=== PATIENT | female | born 1940 | race Caucasian/White ===

== ENCOUNTER → 2017-06-22 | Outpatient (CLI) | payer MEDICARE, OTHER ==
--- NOTE | 2017-06-22 10:31 | XR ---
EXAMINATION TYPE: XR lumbar spine 2 or 3V DATE OF EXAM: 06/22/2017 COMPARISON: NONE HISTORY: Sciatica low back pain TECHNIQUE: Three-view lumbar spine FINDINGS: There are 6 lumbar-type vertebral bodies. There may be lumbarization of S1. The pedicles ar e intact. There is scoliosis present. Loss of disc height is present with vacuum disc phenomenon. Not e is made of some vascular calcification within the aorta. Vertebral body heights appear preserved. IMPRESSION: 1. Scoliosis and degenerative disc changes lumbar spine
== END | disposition home or self-care (01) ==
LOC: RADXRMAIN 09:14
PROVIDERS: ATTEND Physician Assistant
DX: M47.816 Spondylosis without myelopathy or radiculopathy, lumbar region (principal); M41.9 Scoliosis, unspecified; M54.32 Sciatica, left side
CPT/HCPCS: 72100

== ENCOUNTER → 2018-01-04 | Outpatient (CLI) | payer MEDICARE, OTHER ==
--- NOTE | 2018-01-04 08:05 | US ---
EXAMINATION TYPE: US duplex aorta DATE OF EXAM: 01/04/2018 COMPARISON: NONE CLINICAL HISTORY: I70.0 Atherosclerosis of aorta. Smoker for 60 years. EXAM MEASUREMENTS: Abdominal Aorta: Proximal: 2.0 x 2.0 cm Mid: 1.9 x 1.7 cm Distal: 2.1 x 1.6 cm Aorta appears within normal caliber, extensive calcifications IMPRESSION: Extensive atheromatous changes of the abdominal aorta without sonographic evidence of ane urysm.
== END | disposition home or self-care (01) ==
LOC: RADUSWWP 06:57
PROVIDERS: ATTEND Family Medicine
DX: I70.0 Atherosclerosis of aorta (principal)
CPT/HCPCS: 93979

== ENCOUNTER → 2018-01-08 | Outpatient (CLI) | payer MEDICARE, OTHER ==
--- NOTE | 2018-01-09 08:24 | BD ---
EXAMINATION TYPE: Axial Bone Density DATE OF EXAM: 01/08/2018 COMPARISON: NONE CLINICAL HISTORY: Postmenopausal without hormone replacement therapy Height: 62 Weight: 118.7 FRAX RISK QUESTIONS: Alcohol (3 or more units per day): no Family History (Parent hip fracture): no Glucocorticoids (More than 3mos): no (Ex: prednisone, prednisolone, methylprednisolone, dexamethasone, and hydrocortisone). History of Fracture in Adulthood: yes Secondary Osteoporosis: 1. Type 1 Diabetes: no 2. Hyperthyroidism: no 3. Menopause before 45: no 4. Malnutrition: no 5. Chronic liver disease: no Rheumatoid Arthritis: no Current Tobacco Use: yes RISK FACTORS HISTORY OF: Family History of Osteoporosis: yes Active: no Diet low in dairy products/other sources of calcium: no Postmenopausal woman: age 49 Lost more than 2 inches in height since high school: yes Frequent falls: no MEDICATIONS: blood pressure Additional History: EXAM MEASUREMENTS: Bone mineral densitometry was performed using the [employer] System. Bone mineral density as measured about the Lumbar spine is: ----- L1-L4(G/cm2): 1.140 T Score Values are as follows: ----- L2: -1.0 ----- L3: 1.0 ----- L4: 0.2 ----- L1-L4: -0.3 Bone mineral density has: decreased -1.2 % since study of: 12.11.2013 Bone mineral density about the R hip (g/cm2): 0.781 Bone mineral density about the L hip (g/cm2): 0.863 T Score values are as follows: -----R Neck: -1.9 -----L Neck: -1.3 -----R Total: -1.9 -----L Total: -2.0 Bone mineral density has: decreased -0.5 % since study of: 12.11.2013 IMPRESSION: Osteopenia NOTE: T-SCORE=SD OF THE YOUNG ADULT MEAN.
== END | disposition home or self-care (01) ==
LOC: RADBDWWP 15:25
PROVIDERS: ATTEND Family Medicine
DX: M85.80 Other specified disorders of bone density and structure, unspecified site (principal); Z78.0 Asymptomatic menopausal state
CPT/HCPCS: 77080

== ENCOUNTER → 2018-12-24 | Outpatient (CLI) | payer MEDICARE, OTHER ==
--- NOTE | 2018-12-24 16:57 | XR ---
EXAMINATION TYPE: XR chest 2V DATE OF EXAM: 12/24/2018 COMPARISON: 12/03/2010 INDICATION: F17.200 TECHNIQUE: Frontal and lateral views of the chest are obtained. FINDINGS: The heart size is normal. The pulmonary vasculature is normal. The lungs are clear. Nipple shadows at the left lung base. IMPRESSION: 1. No acute pulmonary process. 2. Recommend evaluation for screening low-dose CT of the chest
== END | disposition home or self-care (01) ==
LOC: RADXRMAIN 14:34
PROVIDERS: ATTEND Physician Assistant
DX: F17.200 Nicotine dependence, unspecified, uncomplicated (principal)
CPT/HCPCS: 71046

== ENCOUNTER 2019-06-16 18:54 | Emergency (ER) | payer MEDICARE, OTHER ==
[2019-06-16 19:00] VITALS: RESP 18; TEMP 97.7
--- NOTE | 2019-06-16 19:10 | ED ---
Fall HPI - General Chief Complaint: Fall Stated Complaint: Fell injury arm Time Seen by Provider: 06/16/19 19:01 Source: patient, family Mode of arrival: ambulatory - History of Present Illness Initial Comments: Patient is an 79-year-old female presenting to emergency Department with chief complaint of a fall. Patient reports she walked into an dark room in an attempt to turn on the lights, she tripped and fell on the furniture. Patient reports pain along the medial aspect of the distal right forearm. Patient reports full range of motion of the fingers but is unable to flex or extend the wrist due to pain. Patient denies any numbness or tingling. Patient reports full range of motion in the right elbow and shoulder. Patient also reports mild injury to the right side of her head. Patient denies any loss of consciousness nausea vomiting. Patient has any blurry vision headaches shortness of breath or chest pain at this time. Patient denies taking medication to alleviate the symptoms. Patient is not on blood thinners. - Related Data Allergies Allergy/AdvReac Type Severity Reaction Status Date / Time No Known Allergies Allergy Verified 06/16/19 19:00 Review of Systems ROS Statement: Those systems with pertinent positive or pertinent negative responses have been documented in the HPI. ROS Other: All systems not noted in ROS Statement are negative. Past Medical History Past Medical History: Hypertension Additional Past Medical History / Comment(s): bone disease History of Any Multi-Drug Resistant Organisms: None Reported Past Surgical History: Appendectomy, Tubal Ligation Past Psychological History: No Psychological Hx Reported Smoking Status: Current every day smoker Past Alcohol Use History: None Reported Past Drug Use History: None Reported General Exam Limitations: no limitations General appearance: alert, in no apparent distress Head exam: Present: atraumatic, normocephalic, normal inspection. Absent: other (Negative Mendoza sign, negative periorbital ecchymosis, negative hemotympanum.) Eye exam: Present: normal appearance, PERRL, EOMI Pupils: Present: normal accommodation ENT exam: Present: normal exam, normal oropharynx (No oral trauma), mucous membranes moist, TM's normal bilaterally, normal external ear exam Neck exam: Present: normal inspection, full ROM. Absent: tenderness Respiratory exam: Present: normal lung sounds bilaterally Cardiovascular Exam: Present: regular rate, normal rhythm, normal heart sounds Extremities exam: Present: normal inspection, tenderness (Tenderness along the medial aspect of the distal right wrist), normal capillary refill, other (+2 ulnar and radial pulses bilaterally.). Absent: full ROM (Limited range of motion in the right wrist. Full range of motion in the fingers) Back exam: Present: normal inspection, full ROM Neurological exam: Present: alert, oriented X3 Psychiatric exam: Present: normal affect, normal mood Skin exam: Present: warm, intact, normal color Course Vital Signs 06/16/19 06/16/19 18:56 20:52 Temperature 97.7 F 97.7 F Pulse Rate 77 80 Respiratory 18 18 Rate Blood Pressure 153/86 145/75 O2 Sat by Pulse 99 97 Oximetry Procedures - Orthopedic Splinting/Casting Injury #1 Side: right Upper Extremity Injury Location: long arm Upper Extremity Immobilizer: sling/shoulder immobilizer, posterior splint, Daniel wrap, synthetic pre-padded splint Medical Decision Making - Medical Decision Making Patient is an 79-year-old female presenting to emergency Department with a chief complaint of a fall. Patient did have a head injury but is not on blood thinners. Patient does have tenderness along the distal end of the forearm. X- rays indicative of an ulnar fracture. Lumbar splint was applied. Patient given Tylenol 3 in the ED and discharged with a starter pack. Patient advised about possible side effects of medication. Patient advised to follow-up with an teacher selection specialist. There was a delay of over an hour between the time the images were obtained and read causing a delay in discharge. Strict return par ameters were thoroughly discussed with patient was or standing agreeable. Case discussed physician. Disposition Clinical Impression: Fall, Distal end of ulna fracture, closed Disposition: HOME SELF-CARE Condition: Stable Instructions (If sedation given, give patient instructions): Arm Fracture in Adults (ED), Fall Prevention (ED) Additional Instructions: Please follow with teacher selection specialist. Please return to emergency department if symptoms worsen. Is patient prescribed a controlled substance at d/c from ED?: No Referrals: Colton Yoo MD [Primary Care Provider] - 1-2 days Victoriano Onofre DO [Doctor of Osteopathic Medicine] - 1-2 days Time of Disposition: 20:44
[2019-06-16] MEDS ORDERED: Acetaminophen-Codeine 300-30mg TAB PO STA (19:11)
--- NOTE | 2019-06-16 20:14 | CT ---
EXAMINATION TYPE: CT brain hardeep vanegas DATE OF EXAM: 06/16/2019 COMPARISON: HISTORY: fall CT DLP: 1235.5 mGycm, Automated exposure control for dose reduction was used. CONTRAST: Patient injected with mL of . CT of the brain is performed utilizing 3 mm thick sections through the posterior fossa and 3 mm thick sections through the remaining calvarium. Study is performed within 24 hours of arrival to the hospital. No abnormal hyperdensity is present to suggest an acute intracranial hemorrhage. No intracranial mass lesion is evident. There is a subcutaneous calcified nodule over the left fronta l region No acute infarcts are evident. Mild periventricular white matter hypodensity is present, likely on t he basis of chronic white matter ischemic changes. Ventricles and sulci are appropriate for the patient age. Paranasal sinuses and mastoid air cells within the [id number] are clear. IMPRESSIONS: 1. Periventricular white matter ischemic changes. 2. No acute intracranial process. CT cervical spine. COMPARISON: None CT of the cervical spine is performed in the axial plane at 2 mm thick sections. Reconstructed image s in the coronal, and sagittal plane are reviewed on the computer. No acute fractures are evident. There is side bending towards the left. There is diffuse loss of disc height throughout the cervical spine. Vertebral body heights are preserved. No spinal canal stenosis is evident. Foraminal narrowing from uncovertebral joint atrophy is present. IMPRESSIONS: 1. Degenerative changes. No acute osseous abnormality is evident.
--- NOTE | 2019-06-16 20:39 | XR ---
EXAMINATION TYPE: XR forearm RT DATE OF EXAM: 06/16/2019 COMPARISON: 06/16/2019 wrist HISTORY: Fall, pain TECHNIQUE: 2 views right forearm FINDINGS: There is an oblique fracture of the distal diaphyseal ulna. No additional fractures are judit dent. IMPRESSION: 1. Oblique fracture distal diaphyseal ulna.
--- NOTE | 2019-06-16 20:40 | XR ---
EXAMINATION TYPE: XR wrist complete RT DATE OF EXAM: 06/16/2019 COMPARISON: None HISTORY: Pain right forearm, fall TECHNIQUE: 2 views right wrist FINDINGS: There is an oblique fracture of the distal diaphyseal ulna. No additional fractures are evident. Mild diffuse soft tissue swelling may be present. IMPRESSION: 1. Fracture of the distal diaphyseal ulna. 2. Right wrist appears intact. 3. Follow-up exams can be performed 7-10 days from acute trauma for continued pain.
[2019-06-16] MEDS ORDERED: ACET/COD 300 MG/30 MG STARTER PACK 6 TAB BTL PO STA (20:45)
[2019-06-16 20:54] VITALS: BP 145/75; PULSE 80
== END 2019-06-16 20:54 | disposition home or self-care (01) ==
LOC: EC 18:54
DX: S52.691A Other fracture of lower end of right ulna, initial encounter for closed fracture (principal); S09.90XA Unspecified injury of head, initial encounter; F17.200 Nicotine dependence, unspecified, uncomplicated; W01.190A Fall on same level from slipping, tripping and stumbling with subsequent striking against furniture, initial encounter; Y93.01 Activity, walking, marching and hiking; Y92.009 Unspecified place in unspecified non-institutional (private) residence as the place of occurrence of the external cause
CPT/HCPCS: 29125; 70450; 72125; 99284

== ENCOUNTER 2019-09-19 13:40 | Inpatient (IN) | payer MEDICARE, OTHER ==
[2019-09-19] MEDS ORDERED: SODIUM CHLORIDE 0.9% 1,000 ML IV STA (14:29)
--- NOTE | 2019-09-19 14:30 | ED ---
General Adult HPI - General Chief complaint: Abdominal Pain Stated complaint: dehydration/diarrhea Time Seen by Provider: 09/19/19 14:18 Source: patient, RN notes reviewed Mode of arrival: ambulatory Limitations: no limitations - History of Present Illness Initial comments: Patient 79-year-old female presents emergency room today with chief complaint of symptoms of diarrhea and abdominal pain over the last 2 weeks. Patient states there's been no signs of blood in the stool. She denies any nausea or vomiting. She states that when she eats or drinks feels like things go straight through her. She states she was having prosthesis 6 loose stools 6 hours today. She did see her family doctor was advised come here to the emergency room for further evaluation. Patient denies any recent fever, chills, shortness of breath, chest pain, back pain, nausea or vomiting, headaches or visual changes, or any other complaints. - Related Data Allergies Allergy/AdvReac Type Severity Reaction Status Date / Time No Known Allergies Allergy Verified 09/19/19 13:56 Review of Systems ROS Statement: Those systems with pertinent positive or pertinent negative responses have been documented in the HPI. ROS Other: All systems not noted in ROS Statement are negative. Past Medical History Past Medical History: Hypertension Additional Past Medical History / Comment(s): bone disease History of Any Multi-Drug Resistant Organisms: None Reported Past Surgical History: Appendectomy, Tubal Ligation Past Psychological History: No Psychological Hx Reported Smoking Status: Current every day smoker Past Alcohol Use History: None Reported Past Drug Use History: None Reported General Exam - General Exam Comments Initial Comments: General: The patient is awake and alert, in no distress, and does not appear acutely ill. Eye: There is normal conjunctiva bilaterally. No signs of icterus. Ears, nose, mouth and throat: There are moist mucous membranes and no oral lesions. Neck: The neck is supple Cardiovascular: There is a regular rate and rhythm. No murmur, rub or gallop is appreciated. Respiratory: Lungs are clear to auscultation, respirations are non-labored, breath sounds are equal. No wheezes, stridor, rales, or rhonchi. Gastrointestinal: Abdomen soft on palpation per patient does have increased tenderness in the upper left and lower quadrants. No rebound, guarding Musculoskeletal: Normal ROM, no tenderness. Neurological: A&O x 3. CN II-XII intact, There are no obvious motor or sensory deficits. Coordination appears grossly intact. Speech is normal. Skin: Skin is warm and dry and no rashes or lesions are noted. Psychiatric: Cooperative, appropriate mood & affect, normal judgment. Limitations: no limitations Course Vital Signs 09/19/19 13:53 Temperature 97.4 F L Pulse Rate 90 Respiratory 16 Rate Blood Pressure 98/65 O2 Sat by Pulse 99 Oximetry Medical Decision Making - Medical Decision Making CT reviewed and is negative for any acute abnormality. Patient's labs been reviewed and does show elevated BUN and Creatinine. Patient does admit to diarrhea over the last 2 weeks. Patient will be admitted to hospital for kidney failure continued on IV fluids. Patient is a regular plan states understanding. - Lab Data Result diagrams: 09/19/19 14:09 09/19/19 14:09 Lab Results 09/19/19 09/19/19 Range/Units 14:09 14:09 WBC 8.4 (3.8-10.6) k/uL RBC 5.20 (3.80-5.40) m/uL Hgb 16.1 H (11.4-16.0) gm/dL Hct 48.2 H (34.0-46.0) % MCV 92.8 (80.0-100.0) fL MCH 31.1 (25.0-35.0) pg MCHC 33.5 (31.0-37.0) g/dL RDW 14.3 (11.5-15.5) % Plt Count 279 (150-450) k/uL Neutrophils % 71 % Lymphocytes % 16 % Monocytes % 8 % Eosinophils % 2 % Basophils % 1 % Neutrophils # 5.9 (1.3-7.7) k/uL Lymphocytes # 1.3 (1.0-4.8) k/uL Monocytes # 0.7 (0-1.0) k/uL Eosinophils # 0.1 (0-0.7) k/uL Basophils # 0.1 (0-0.2) k/uL Sodium 133 L (137-145) mmol/L Potassium 4.8 (3.5-5.1) mmol/L Chloride 102 (98-107) mmol/L Carbon Dioxide 19 L (22-30) mmol/L Anion Gap 12 mmol/L BUN 25 H (7-17) mg/dL Creatinine 2.14 H (0.52-1.04) mg/dL Est GFR (CKD-EPI)AfAm 25 (>60 ml/min/1.73 sqM) Est GFR (CKD-EPI)NonAf 21 (>60 ml/min/1.73 sqM) Glucose 101 H (74-99) mg/dL Calcium 9.2 (8.4-10.2) mg/dL Total Bilirubin 0.5 (0.2-1.3) mg/dL AST 23 (14-36) U/L ALT 14 (4-34) U/L Alkaline Phosphatase 80 (38-126) U/L Total Protein 6.8 (6.3-8.2) g/dL Albumin 3.8 (3.5-5.0) g/dL Amylase 49 (30-110) U/L Lipase 54 (23-300) U/L Disposition Clinical Impression: THUY (acute kidney injury), Dehydration Disposition: ADMITTED IP TO THIS [facility] Condition: Good Is patient prescribed a controlled substance at d/c from ED?: No Referrals: Colton Yoo MD [Primary Care Provider] - 1-2 days Time of Disposition: 16:20
[2019-09-19 14:48] LABS: Basophils # (A) 0.1 k/uL (0-0.2); Basophils % (A) 1 %; Eosinophils # (A) 0.1 k/uL (0-0.7); Eosinophils % (A) 2 %; HCT 48.2 % (34.0-46.0); HGB 16.1 gm/dL (11.4-16.0); Lymphocytes # (A) 1.3 k/uL (1.0-4.8); Lymphocytes % (A) 16 %; MCH 31.1 pg (25.0-35.0); MCHC 33.5 g/dL (31.0-37.0); MCV 92.8 fL (80.0-100.0); Mean Platelet Volume 8.8; Monocytes # (A) 0.7 k/uL (0-1.0); Monocytes % (A) 8 %; Neutrophils # (A) 5.9 k/uL (1.3-7.7); Neutrophils % (A) 71 %; Platelet Count 279 k/uL (150-450); RDW 14.3 % (11.5-15.5); WBC 8.4 k/uL (3.8-10.6)
[2019-09-19 14:59] LABS: Albumin 3.8 g/dL (3.5-5.0); Calcium 9.2 mg/dL (8.4-10.2); Potassium 4.8 mmol/L (3.5-5.1); Total Bilirubin 0.5 mg/dL (0.2-1.3); Total Protein 6.8 g/dL (6.3-8.2)
--- NOTE | 2019-09-19 15:53 | CT ---
EXAMINATION TYPE: CT abdomen pelvis wo con DATE OF EXAM: 09/19/2019 COMPARISON: None HISTORY: Abdominal pain and diarrhea. CT DLP: 359.8 mGycm Examination of the solid and hollow viscera is limited given the lack of contrast. FINDINGS: LUNG BASES: No evidence for nodule. No evidence for infiltrate. LIVER/GB: The gallbladder is unremarkable. No space-occupying hepatic lesion. PANCREAS: No pancreatic mass identified. No inflammatory process seen. SPLEEN: No evidence for splenomegaly. No intrasplenic lesions seen. ADRENALS: No adrenal nodules identified. No evidence for thickening. KIDNEYS: No evidence for renal mass. No nephrolithiasis. No hydronephrosis. BOWEL: Appendix has a normal appearance. No evidence of bowel obstruction. No inflammatory process. Lymph nodes: No evidence for adenopathy greater than 1 cm. Abdominal aorta: Atheromatous changes seen. No evidence for aneurysm. Genital organs: Poor visualization of the uterus may reflect atrophic change. Other: Severe degenerative change lumbar spine. IMPRESSION: NO EVIDENCE FOR ACUTE INTRA-ABDOMINAL PROCESS.
[2019-09-19] MEDS ORDERED: NALOXONE 0.4 MG/ML 1 ML VIAL IV PRN (16:21)
[2019-09-19] MEDS: SODIUM CHLORIDE 0.9% 1,000 ML IV SCH ×2 (17:11→22:17)
[2019-09-19 19:44] LABS: Appearance,Urine Clear (Clear); Bacteria,Urine Occasional /hpf; Bilirubin,Urine Negative (Negative); Blood,Urine Negative (Negative); Color,Urine Light Yellow; Glucose,Urine (UA) Negative (Negative); Hyaline Casts,Urine 27 /lpf (0-2); Ketones,Urine Negative (Negative); Leukocyte Esterase,Urine Negative (Negative); Mucus,Urine Rare /hpf; Nitrite,Urine Positive (Negative); Protein,Urine Negative (Negative); RBC,Urine 1 /hpf (0-5); Specific Gravity,Urine 1.007 (1.001-1.035); Squamous Epithelial Cell,Urine <1 /hpf (0-4); Urobilinogen,Urine <2.0 mg/dL (<2.0); WBC,Urine 1 /hpf (0-5)
[2019-09-19] MEDS: LOPERAMIDE 2 MG CAP PO PRN (22:50)
[2019-09-19] MEDS ORDERED: LOPERAMIDE 2 MG CAP PO PRN (23:33)
[2019-09-19] MEDS ORDERED: TEMAZEPAM 15 MG CAP PO PRN (23:36)
[2019-09-19] MEDS ORDERED: ACETAMINOPHEN TAB 500 MG TAB PO PRN (23:36)
[2019-09-19] MEDS ORDERED: ALPRAZolam 0.25 MG TAB PO PRN (23:36)
[2019-09-20] MEDS: SODIUM CHLORIDE 0.9% 1,000 ML IV SCH (03:30)
[2019-09-20 08:25] LABS: Basophils # (A) 0.1 k/uL (0-0.2); Basophils % (A) 1 %; Eosinophils # (A) 0.1 k/uL (0-0.7); Eosinophils % (A) 1 %; HGB 14.3 gm/dL (11.4-16.0); Lymphocytes # (A) 1.2 k/uL (1.0-4.8); Lymphocytes % (A) 15 %; MCH 29.5 pg (25.0-35.0); MCHC 31.7 g/dL (31.0-37.0); MCV 93.1 fL (80.0-100.0); Mean Platelet Volume 9.2; Monocytes # (A) 0.8 k/uL (0-1.0); Monocytes % (A) 10 %; Neutrophils # (A) 5.9 k/uL (1.3-7.7); Neutrophils % (A) 72 %; Platelet Count 235 k/uL (150-450); RBC 4.83 m/uL (3.80-5.40); RDW 14.4 % (11.5-15.5); WBC 8.1 k/uL (3.8-10.6)
[2019-09-20 08:45] LABS: Magnesium 1.8 mg/dL (1.6-2.3); Potassium 4.6 mmol/L (3.5-5.1)
[2019-09-20] MEDS: HEPARIN SODIUM,PORCINE 5,000 UNIT/ML 1 ML VIAL SQ SCH ×2 (08:57→21:08)
[2019-09-20] MEDS: METOPROLOL TARTRATE 50 MG TAB PO SCH ×2 (10:09→21:08)
[2019-09-20] MEDS: PANTOPRAZOLE 40 MG TABLET PO SCH (10:09)
[2019-09-20] MEDS: NICOTINE 7MG/24HR PATCH TRANSDERM SCH (10:56)
[2019-09-20 11:10] VITALS: BMI 17.6
--- NOTE | 2019-09-20 13:52 | HP ---
HISTORY AND PHYSICAL I am covering for Dr. Yoo. CHIEF COMPLAINT: Diarrhea. HISTORY OF PRESENT ILLNESS: This 79-year-old woman with a past medical history of multiple medical problems, including history of COPD, hypertension, history of bone disease of the spine, appendectomy, tubal ligation, being followed by Dr. Colton Yoo in the outpatient setting was complaining of dehydration and diarrhea. The patient had diarrhea for the last two weeks and some abdominal pain. The patient had multiple episodes of watery, medium to large volume diarrhea. The patient had no nausea or vomiting. The patient was living with her family but did not eat outside or the family is also not sick at this time. The daughter works at [employer], according to her. There is no history of fever. There is no history of headache, loss of consciousness or seizures. The patient underwent abdominal and pelvis CT scan in the ER, which showed no evidence of an acute intra-abdominal process. PAST MEDICAL HISTORY: History of COPD, hypertension, history of bone disease of the spine. MEDICATIONS: 1. Amlodipine one capsule p.o. daily. 2. Metoprolol 50 mg b.i.d. 3. Loperamide p.r.n. 4. Calcium with vitamin D. ALLERGIES: None. FAMILY HISTORY: History of cancer, CVA, TIA, stomach cancer. SOCIAL HISTORY: History of smoking, ongoing. REVIEW OF SYSTEMS: ENT: No diminished hearing or diminished vision. CARDIOVASCULAR SYSTEM: No angina. RESPIRATORY SYSTEM: As mentioned earlier. GI: As mentioned earlier. : No dysuria. NERVOUS SYSTEM: No numbness or weakness. ALLERGY/IMMUNOLOGY: No history of asthma. MUSCULOSKELETAL: As mentioned earlier. HEMATOLOGY/ONCOLOGY: No history of anemia. ENDOCRINE: No history of diabetes or hypothyroidism. CONSTITUTIONAL: As mentioned earlier. DERMATOLOGY: Negative. RHEUMATOLOGY: Negative. PSYCHIATRY: As mentioned earlier. PHYSICAL EXAMINATION: The patient is alert and oriented x3. Pulse 80, blood pressure 110/72, respirations 16, temperature 98 degrees, pulse ox 98% on room air. HEENT: Conjunctivae normal. NECK: No jugular venous distention. CARDIOVASCULAR: S1, S2 muffled. RESPIRATORY: Breath sounds diminished at the bases. No rhonchi. No crackles. ABDOMEN: Soft, mild diffuse distention, mild diffuse discomfort. No guarding, no rigidity. No ascites. . Bowel sounds diminished. No mass palpable. LEGS: No edema, no swelling. NERVOUS SYSTEM: Higher function as mentioned earlier. Moves all 4 limbs. No focal motor or sensory deficit. LYMPHATICS: No lymphadenopathy of neck , axillae or groin. SKIN: No ulcers, rashes or bleeding. JOINTS: No active deforming arthropathy. LABS: Labs at this time show creatinine 2.14, baseline is normal. Hemoglobin is 16.1. Sodium 133. ASSESSMENT: 1. Subacute diarrhea with severe dehydration. 2. Acute renal failure secondary to acute diarrhea and as well as prerenal acute renal failure. 3. Hyponatremia, hypovolemic. 4. History of hypertension. 5. History of chronic obstructive pulmonary disease. 6. History of appendectomy. 7. History of tubal ligation. 8. History of continued ongoing nicotine dependence. 9. Mild to moderate chronic malnutrition with body mass index of 17.7. RECOMMENDATIONS AND DISCUSSION: This 79-year-old woman who presented with multiple complex medical issues. We will monitor the patient closely, continue the current medications, continue symptomatic treatment. I would recommend a Gastroenterology evaluation. I will keep the patient n.p.o. except medications to monitor for any persistent diarrhea. Otherwise, overall prognosis is guarded because of multiple complex medical issues. Further recommendation to follow. We will treat the patient as infected diarrhea at this point and will evaluate for further causes if the diarrhea persists. See orders for further details and further recommendations will follow. A copy of dictation forwarded to Dr. Colton Yoo who is the primary physician. Will hold the antihypertensive medications also. MMODL / IJN: [id number] / MTDD
[2019-09-20] MEDS: LOPERAMIDE 2 MG CAP PO PRN (17:26)
[2019-09-20] MEDS: DICYCLOMINE 20 MG TAB PO SCH ×2 (17:26→22:04)
[2019-09-20 18:47] LABS: Hepatitis A Antibody IgM Non-Reactive (Non-Reactive); Hepatitis B Core IgM Non-Reactive (Non-Reactive); Hepatitis B Surface Antigen Non-Reactive (Non-Reactive); Hepatitis C IgG Antibody Non-Reactive (Non-Reactive)
--- NOTE | 2019-09-20 20:35 | PN ---
PROGRESS NOTE DATE OF SERVICE: 09/20/2019 I am covering for Dr. Yoo. This 79-year-old woman who was admitted with significant diarrhea also had renal failure. The patient is dehydrated. Abdomen and pelvis CAT scan was done which showed no evidence of intraabdominal process at this time. The creatinine is currently at 1.14. The stool OB is also positive at this time. Influenza is negative. C diff is also negative. Giardia and Cryptosporidium was also negative at this time. PAST MEDICAL HISTORY: Reviewed. REVIEW OF SYSTEMS: CARDIOVASCULAR system: No angina or palpitations. RESPIRATORY: As mentioned earlier. GASTROINTESTINAL: As mentioned earlier. no dysuria. No hematuria. CENTRAL NERVOUS SYSTEM: No numbness or weakness. MEDICATIONS: Current medications are reviewed and include: 1. Tylenol p.r.n. 2. Xanax 0.5 t.i.d. 3. Bentyl 20 mg p.o. q.h.s. 4. Heparin 5000 subcu b.i.d. 5. Imodium 2 mg b.i.d. 6. Lopressor 50 mg p.o. b.i.d. 7. Narcan p.r.n. 8. Habitrol 7 daily. 9. Protonix. 10.Restoril. PHYSICAL EXAM: Patient is alert, oriented x3. Pulse 78. Blood pressure 120/70, respirations 17, temperature 98.3, pulse ox 94% on room air. HEENT: Conjunctivae normal. Oral mucosa moist. NECK: No JVD. CARDIOVASCULAR: S1, S2 muffled. RESPIRATION: Breath sounds diminished in the bases. Bilateral scattered rhonchi and crackles. ABDOMEN: Soft, nontender. Mild diffuse distention present. Bowel sounds present. LEGS: No edema. No swelling. CENTRAL NERVOUS SYSTEM: Higher functions as mentioned earlier. Moves all 4 limbs. No focal motor or sensory deficits. Lymphatics: No lymph nodes palpable in the neck, axillae or groin. SKIN: No ulcer, no rash and no bleeding. JOINTS: No active deforming arthropathy. LABS: CBC within normal limits. CO2 17. Creatinine is 1.14. ASSESSMENT: 1. Subacute diarrhea with severe dehydration. 2. Acute renal failure secondary to acute diarrhea as well as prerenal factors and acute tubular necrosis. 3. Mild metabolic acidosis secondary to diarrhea. 4. Hyponatremia, hypovolemic. 5. History of hypertension. 6. Chronic obstructive pulmonary disease. 7. Appendectomy. 8. History of tubal ligation. 9. History of continued ongoing nicotine dependence. 10.Mild to moderate malnutrition with body mass index of 17.7. 11.FULL CODE. RECOMMENDATIONS AND DISCUSSION: In this 79-year-old woman who presented with multiple complex medical issues, we will monitor the patient closely. Continue the current medications. We will advance diet to clear liquids and continue to monitor. Continue with IV fluids. Repeat labs. Repeat CO2. DVT prophylaxis. Guarded prognosis because of multiple complex medical issues. We will closely follow with Gastroenterology and consider endoscopies if the patient remains to be symptomatic. Otherwise infective diarrhea is a possibility. MMODL / IJN: [id number] /
[2019-09-21] MEDS: SODIUM CHLORIDE 0.9% 1,000 ML IV SCH ×3 (04:05→19:11)
[2019-09-21 04:20] LABS: Appearance,Urine Clear (Clear); Bilirubin,Urine Negative (Negative); Blood,Urine Negative (Negative); Color,Urine Light Yellow; Glucose,Urine (UA) Negative (Negative); Ketones,Urine Negative (Negative); Leukocyte Esterase,Urine Negative (Negative); Nitrite,Urine Negative (Negative); Protein,Urine Negative (Negative); Specific Gravity,Urine 1.004 (1.001-1.035); Urobilinogen,Urine <2.0 mg/dL (<2.0)
[2019-09-21 07:14] LABS: Basophils # (A) 0.1 k/uL (0-0.2); Basophils % (A) 1 %; Eosinophils % (A) 1 %; HCT 47.2 % (34.0-46.0); HGB 15.4 gm/dL (11.4-16.0); Lymphocytes % (A) 11 %; MCH 30.1 pg (25.0-35.0); MCHC 32.6 g/dL (31.0-37.0); MCV 92.3 fL (80.0-100.0); Mean Platelet Volume 9.4; Monocytes # (A) 0.7 k/uL (0-1.0); Monocytes % (A) 8 %; Neutrophils # (A) 6.8 k/uL (1.3-7.7); Neutrophils % (A) 78 %; Platelet Count 283 k/uL (150-450); RBC 5.11 m/uL (3.80-5.40); RDW 14.5 % (11.5-15.5); WBC 8.8 k/uL (3.8-10.6)
[2019-09-21 07:25] LABS: Calcium 8.4 mg/dL (8.4-10.2); Potassium 4.2 mmol/L (3.5-5.1)
[2019-09-21] MEDS: PANTOPRAZOLE 40 MG TABLET PO SCH (08:33)
[2019-09-21] MEDS: DICYCLOMINE 20 MG TAB PO SCH ×4 (08:33→21:50)
[2019-09-21] MEDS: METOPROLOL TARTRATE 50 MG TAB PO SCH ×2 (08:33→21:50)
[2019-09-21] MEDS: LOPERAMIDE 2 MG CAP PO PRN ×3 (08:33→21:50)
[2019-09-21] MEDS: NICOTINE 7MG/24HR PATCH TRANSDERM SCH (08:34)
[2019-09-21] MEDS: HEPARIN SODIUM,PORCINE 5,000 UNIT/ML 1 ML VIAL SQ SCH ×2 (08:37→21:51)
--- NOTE | 2019-09-21 12:12 | P.CONS ---
History of Present Illness - Reason for Consult Consult date: 09/20/19 Diarrhea Requesting physician: Amor Ortiz - Chief Complaint Diarrhea - History of Present Illness 79-year-old female with a medical history significant for COPD and hypertension who presented to the hospital with complaints of abdominal pain and diarrhea. The patient reports 2 weeks of symptoms which have been persistent. She reports bowel movements occurring up to 6 times per day. She describes loose nonbloody stools with associated urgency. Patient also reportedly sharp crampy abdominal pain diffusely across her whole abdomen. Usually occurring prior to bowel movements. No sick contacts, unusual foods, black tarry bowel movements or prior episodes of similar diarrhea. She denies any nausea, vomiting or fevers. No prior endoscopy with EGD or colonoscopy. Computed tomography scan of the abdomen was negative. Stool testing negative for Clostridium difficile as well as other acute infectious sources, but did show lactoferrin. WBC 8.1, hemoglobin 14.3, platelet count 235,000, alkaline phosphatase 80, total bilirubin 0.5, AST 23 and ALT 14. Review of Systems REVIEW OF SYSTEMS: CONSTITUTIONAL: Denies any fevers, chills, weight change or fatigue. CARDIOVASCULAR: Denies any chest pain, palpitations high or low blood pressures RESPIRATORY: Denies any shortness of breath, hemoptysis or cough. GENITOURINARY: No dysuria or hematuria. MUSCULOSKELETAL: No weakness reported. SKIN: Denies any new rashes or lesions, jaundice or pallor. PSYCHIATRIC: Denies any depression or anxiety. NEUROLOGY: Denies headache, denies any new focal deficits. EARS/NOSE/THROAT: No recent hearing change, congestion, nasal discharge or sore throat. EYES: No pain in eyes, discharge or change in vision. GASTROINTESTINAL: As per HPI. Past Medical History Past Medical History: COPD, Hypertension Additional Past Medical History / Comment(s): bone disease of spine History of Any Multi-Drug Resistant Organisms: None Reported Past Surgical History: Appendectomy, Tubal Ligation Past Anesthesia/Blood Transfusion Reactions: No Reported Reaction Past Psychological History: No Psychological Hx Reported Smoking Status: Current every day smoker Past Alcohol Use History: None Reported Past Drug Use History: None Reported - Past Family History Mother Family Medical History: Cancer, CVA/TIA Additional Family Medical History / Comment(s): Stomach Ca Father Additional Family Medical History / Comment(s): 6yrs after spinal surgery, not sure if it was from [place] Medications and Allergies Home Medications Medication Instructions Recorded Confirmed Type Calcium/Vit D3(Unknown Dose) 0.5 tab PO DAILY 09/19/19 09/19/19 History Loperamide HCl [Imodium A-D] 2 - 4 mg PO QID PRN 09/19/19 09/19/19 History Metoprolol Tartrate [Lopressor] 50 mg PO BID 09/19/19 09/19/19 History amLODIPine BESYLATE/BENAZEPRIL 1 cap PO DAILY 09/19/19 09/19/19 History [Lotrel 10-40 MG] Allergies Allergy/AdvReac Type Severity Reaction Status Date / Time No Known Allergies Allergy Verified 09/19/19 17:53 Physical Exam Vitals: Vital Signs Temp Pulse Pulse Resp BP BP Pulse Ox 09/20/19 10:11 127/73 09/20/19 07:00 98.2 F 101 H 16 117/67 93 L 09/20/19 01:21 98.4 F 99 18 99/64 91 L 09/19/19 20:00 97.8 F 96 16 104/65 94 L 09/19/19 17:14 98.0 F 80 16 110/72 98 09/19/19 13:53 97.4 F L 90 16 98/65 99 Intake and Output 09/19/19 09/20/19 09/20/19 22:59 06:59 14:59 Other: # Voids 1 1 # Bowel Movements 3 1 Weight 46.72 kg 46.72 kg On physical examination, patient appears comfortable in no apparent distress. HEAD: Normocephalic, atraumatic. EYES: No scleral icterus. No conjunctival injection. MOUTH: No lesions, tongue midline. NECK: Trachea midline, no gross abnormalities. CHEST: Clear to auscultation with no wheezing or rhonchi appreciated. HEART: Regular rate and rhythm. ABDOMEN: Soft, mildly tender to palpation. Bowel sounds are positive. No organomegaly. No guarding or rigidity. EXTREMITIES: No pedal edema. SKIN: No rashes, no jaundice. NEUROLOGIC: Alert and oriented x3. No focal deficits. Results CBC & Chem 7: 09/21/19 06:31 09/21/19 06:31 Labs: Abnormal Lab Results - Last 24 Hours (Table) 09/19/19 09/19/19 09/19/19 Range/Units 14:09 14:09 Unknown Hgb 16.1 H (11.4-16.0) gm/dL Hct 48.2 H (34.0-46.0) % Sodium 133 L (137-145) mmol/L Chloride (98-107) mmol/L Carbon Dioxide 19 L (22-30) mmol/L BUN 25 H (7-17) mg/dL Creatinine 2.14 H (0.52-1.04) mg/dL Glucose 101 H (74-99) mg/dL Calcium (8.4-10.2) mg/dL Urine Nitrite Positive H (Negative) Urine Bacteria Occasional H (None) /hpf Hyaline Casts 27 H (0-2) /lpf Urine Mucus Rare H (None) /hpf Stool Occult Blood (Negative) 09/20/19 09/20/19 Range/Units 03:50 07:16 Hgb (11.4-16.0) gm/dL Hct (34.0-46.0) % Sodium (137-145) mmol/L Chloride 113 H (98-107) mmol/L Carbon Dioxide 17 L (22-30) mmol/L BUN 20 H (7-17) mg/dL Creatinine 1.14 H (0.52-1.04) mg/dL Glucose (74-99) mg/dL Calcium 8.0 L (8.4-10.2) mg/dL Urine Nitrite (Negative) Urine Bacteria (None) /hpf Hyaline Casts (0-2) /lpf Urine Mucus (None) /hpf Stool Occult Blood Positive H (Negative) Microbiology - Last 24 Hours (Table) 09/20/19 03:50 Stool Culture - Preliminary Stool CT scan - abdomen: report reviewed (CT of the abdomen with no acute intra- abdominal process noted) Assessment and Plan (1) Diarrhea Narrative/Plan: 7-year-old female with history of hypertension and COPD who presented with 2 weeks of abdominal cramping and pain and diarrhea. She reports multiple loose nonbloody bowel movements daily. Denies any sick contacts, new medications or unusual foods. No nausea, vomiting, fevers or chills with the episode. Computed tomography scan negative for any intra-abdominal process. CBC negative for any fall in hemoglobin or leukocytosis. Unknown etiology, may be related to a viral gastroenteritis, IBS/functional bowel disorder, dietary intolerances or other etiology. Current Visit: Yes Status: Acute Code(s): R19.7 - DIARRHEA, UNSPECIFIED SNOMED Code(s): 18184545 (2) Abdominal pain Current Visit: Yes Status: Acute Code(s): R10.9 - UNSPECIFIED ABDOMINAL PAIN SNOMED Code(s): 08917096 Plan: Supportive care Okay for liquid diet, advance to low residual/low fiber/low lactose Bentyl added 4 times a day as needed for abdominal pain Okay for loperamide as needed for diarrhea Continue to monitor stool output Continue supportive care/IV fluid hydration Plans for endoscopic evaluation at this time, patient is insistent that she is now willing to undergo endoscopy Thank you for allowing us participate in the care of the patient
[2019-09-21] MEDS: CHOLESTYRAMINE (WITH SUGAR) 4 GM PACKET PO SCH ×2 (15:30→17:20)
--- NOTE | 2019-09-21 19:43 | P.PN ---
Subjective Progress Note Date: 09/21/19 Principal diagnosis: Diarrhea Patient is seen lying in bed reporting for loose bowel movements this morning. Overall patient feels bowel movements are slowing down. No blood per rectum. No abdominal pain. Objective - Vital Signs Vital signs: Vital Signs Temp 98.2 F 09/21/19 14:57 Pulse 68 09/21/19 14:57 Resp 17 09/21/19 14:57 BP 136/74 09/21/19 14:57 Pulse Ox 97 09/21/19 14:57 Intake & Output 09/21/19 09/21/19 09/22/19 06:59 18:59 06:59 Other: Voiding Method Bedside Commode Bedside Commode # Voids 2 3 1 # Bowel Movements 1 1 1 - Exam On physical examination, patient appears comfortable in no apparent distress. HEAD: Normocephalic, atraumatic. EYES: No scleral icterus. No conjunctival injection. MOUTH: No lesions, tongue midline. NECK: Trachea midline, no gross abnormalities. ABDOMEN: Soft, obese. Bowel sounds are positive. No organomegaly. No guarding or rigidity. EXTREMITIES: No pedal edema. SKIN: No rashes, no jaundice. NEUROLOGIC: Alert and oriented x3. No focal deficits. - Labs CBC & Chem 7: 09/21/19 06:31 09/21/19 06:31 Labs: Abnormal Lab Results - Last 24 Hours (Table) 09/21/19 09/21/19 Range/Units 06:31 06:31 Hct 47.2 H (34.0-46.0) % Chloride 113 H (98-107) mmol/L Carbon Dioxide 20 L (22-30) mmol/L Assessment and Plan (1) Diarrhea Narrative/Plan: 7-year-old female with history of hypertension and COPD who presented with 2 weeks of abdominal cramping and pain and diarrhea. She reports multiple loose nonbloody bowel movements daily. Denies any sick contacts, new medications or unusual foods. No nausea, vomiting, fevers or chills with the episode. Computed tomography scan negative for any intra-abdominal process. CBC negative for any fall in hemoglobin or leukocytosis. Unknown etiology, may be related to a viral gastroenteritis, IBS/functional bowel disorder, dietary intolerances or other etiology. Current Visit: Yes Status: Acute Code(s): R19.7 - DIARRHEA, UNSPECIFIED SNOMED Code(s): 99349776 (2) Abdominal pain Current Visit: Yes Status: Acute Code(s): R10.9 - UNSPECIFIED ABDOMINAL PAIN SNOMED Code(s): 17243403 Plan: Supportive care Okay for full liquid diet, advance to low residual/low fiber/low lactose Bentyl added 4 times a day as needed for abdominal pain Okay for loperamide as needed for diarrhea Cholestyramine added Continue to monitor stool output Continue supportive care/IV fluid hydration No plans for endoscopic evaluation at this time, patient is insistent that she is unwilling to undergo endoscopy, however if symptoms persist we will reevaluate with the patient Thank you for allowing us participate in the care of the patient
--- NOTE | 2019-09-21 22:49 | PN ---
PROGRESS NOTE DATE OF SERVICE: 09/21/2019 I am covering for Dr. Yoo. This 79-year-old woman admitted for significant diarrhea, dehydration and renal failure is being closely monitored. The patient had multiple episodes of diarrhea. Abdominal and pelvis CAT scan was done which showed not much ileus at this time. The patient is being closely monitored at this time. Dr. Ramirez is following the patient closely. PAST MEDICAL HISTORY: Reviewed. REVIEW OF SYSTEMS: CARDIOVASCULAR SYSTEM: No chest pain. RESPIRATORY: As mentioned earlier. GI: As mentioned earlier. : No dysuria. NERVOUS SYSTEM: No numbness or weakness. CURRENT MEDICATIONS: 1. Tylenol p.r.n. 2. Xanax 0.5 t.i.d. 3. Questran 4 g p.o. t.i.d. 4. Bentyl. 5. Heparin subcu b.i.d. 6. Imodium p.r.n. 7. Lopressor 50 mg p.o. b.i.d. 8. Narcan. 9. Habitrol 7 daily. 10.Protonix. 11.Restoril. PHYSICAL EXAMINATION: Alert and oriented x3. Pulse 68, blood pressure 130/75, respiration 17, temperature 98.2, pulse ox 97% on room air. HEENT: Conjunctivae normal. Oral mucosa moist. NECK: No jugular venous distention. No lymph node enlargement. CARDIOVASCULAR: S1, S2. RESPIRATORY: Diminished breath sounds at the bases. A few scattered rhonchi, no crackles. ABDOMEN: Soft. Mild diffuse tenderness in the lower part of the abdomen. LEGS: No edema, no swelling. NERVOUS SYSTEM: No focal deficits. LABS: WBC 8.2, hemoglobin 15.2, sodium 138, potassium 4.2, CO2 is 20, and creatinine 0.74. Stool ( ) is positive. Otherwise, stool negative. Hepatitis also negative. ASSESSMENT: 1. Subacute diarrhea with severe dehydration, present on admission. 2. Acute renal failure possibly secondary to acute diarrhea as well as acute tubular necrosis. 3. Mild metabolic acidosis secondary to diarrhea. 4. Hyponatremia, hypovolemic. 5. History of hypertension. 6. History of chronic obstructive pulmonary disease. 7. History of appendectomy. 8. History of tubal ligation. 9. History of continued ongoing nicotine dependence. 10.Mild to moderate protein calorie malnutrition with body mass index 17.7. 11.FULL CODE. RECOMMENDATIONS AND DISCUSSION: This 79-year-old woman who presented with multiple complex medical issues, we will monitor the patient closely, continue the current medication and symptomatic treatment. Otherwise, will keep with the diet to full liquids and continue to monitor. Otherwise, if the diarrhea continues will follow with Dr. Ramirez for regarding possible endoscopes. Further recommendations to follow. MMODL / IJN: [id number] /
[2019-09-22] MEDS: LOPERAMIDE 2 MG CAP PO PRN ×2 (06:14→08:25)
[2019-09-22 07:06] LABS: Basophils % (A) 0 %; Eosinophils % (A) 1 %; HCT 45.8 % (34.0-46.0); HGB 14.8 gm/dL (11.4-16.0); Lymphocytes # (A) 1.2 k/uL (1.0-4.8); Lymphocytes % (A) 17 %; MCHC 32.4 g/dL (31.0-37.0); MCV 92.5 fL (80.0-100.0); Mean Platelet Volume 8.8; Monocytes # (A) 0.6 k/uL (0-1.0); Monocytes % (A) 9 %; Neutrophils # (A) 4.8 k/uL (1.3-7.7); Neutrophils % (A) 70 %; Platelet Count 259 k/uL (150-450); RBC 4.95 m/uL (3.80-5.40); RDW 14.4 % (11.5-15.5); WBC 6.9 k/uL (3.8-10.6)
[2019-09-22 07:14] LABS: African American GFR (CKD) >90 (>60 ml/min/1.73 sqM); Anion Gap 6 mmol/L; Blood Urea Nitrogen 6 mg/dL (7-17); Calcium 7.9 mg/dL (8.4-10.2); Carbon Dioxide 22 mmol/L (22-30); Chloride 113 mmol/L (98-107); Glucose 67 mg/dL (74-99); Non-African American GFR(CKD) 85 (>60 ml/min/1.73 sqM); Potassium 3.8 mmol/L (3.5-5.1); Sodium 141 mmol/L (137-145)
[2019-09-22] MEDS: NICOTINE 7MG/24HR PATCH TRANSDERM SCH (08:22)
[2019-09-22] MEDS: HEPARIN SODIUM,PORCINE 5,000 UNIT/ML 1 ML VIAL SQ SCH ×2 (08:22→21:32)
[2019-09-22] MEDS: PANTOPRAZOLE 40 MG TABLET PO SCH (08:23)
[2019-09-22] MEDS: METOPROLOL TARTRATE 50 MG TAB PO SCH ×2 (08:23→21:31)
[2019-09-22] MEDS: DICYCLOMINE 20 MG TAB PO SCH ×4 (08:23→21:31)
[2019-09-22] MEDS: CHOLESTYRAMINE (WITH SUGAR) 4 GM PACKET PO SCH ×3 (08:25→17:18)
[2019-09-22] MEDS: SODIUM CHLORIDE 0.9% 1,000 ML IV SCH (13:56)
[2019-09-22] MEDS: metroNIDAZOLE-NS PMX 500 MG in SALINE 1 100ML.BAG IVPB SCH (16:09)
--- NOTE | 2019-09-22 16:44 | PN ---
PROGRESS NOTE DATE OF SERVICE: 09/22/2019 This 79-year-old woman was admitted with acute diarrheal illness. Also complaining of multiple episodes of diarrhea including a large blowout this morning. The patient had some minimal abdomen discomfort.. Dr. Ramirez is following the patient closely. The patient is not extremely keen on doing any evaluations unless it is definitely indicated. CT scan noted. PAST MEDICAL HISTORY: Reviewed. REVIEW OF SYSTEMS: CARDIOVASCULAR SYSTEM: No angina or palpitations. RESPIRATORY: As mentioned earlier. GI: As mentioned earlier. : No dysuria. NERVOUS SYSTEM: No numbness or weakness. CURRENT MEDICATIONS ARE: 1. Tylenol 500 mg q.6h p.r.n. 2. Xanax 0.25 t.i.d. 3. Questran 4 g p.o. t.i.d. between meals. 4. Bentyl 20 mg q.h.s. 5. Lomotil 1 tablet q.6 p.r.n. 6. Heparin subcu b.i.d. 7. Lopressor 50 mg p.o. b.i.d. 8. Narcan 0.2 q.2 p.r.n. 9. Habitrol 14. 10.Protonix 40 mg daily. 11.Restoril 15 mg q.h.s. p.r.n. PHYSICAL EXAM: Patient is alert, oriented x3. Pulse is 92, blood pressure is 150/90, respirations 12, temperature 98.2, pulse ox 97% on room air. HEENT: Conjunctivae normal. Oral mucosa moist. NECK: No jugular venous distention. No lymph node enlargement. CARDIOVASCULAR: S1, S2. RESPIRATORY: Diminished breath sounds at the bases. A few scattered rhonchi. ABDOMEN: Soft. Minimal discomfort. No guarding, no rigidity. No mass palpable. LEGS: No edema, no swelling. NERVOUS SYSTEM: Higher functions mentioned earlier. Moves all four limbs. No focal deficits. LYMPHATICS: No lymph node in neck or axilla. SKIN: No rash. JOINTS: No active deforming arthropathy. LAB STUDIES: WBC 6.9, hemoglobin 14.1, sodium 130, was 141; potassium 3.8 and calcium is 7.9. Stool OB is positive. ASSESSMENT: 1. Subacute diarrhea with severe dehydration, present on admission, continuing. 2. Acute renal failure, possibly secondary to acute diarrhea with acute tubular necrosis and prerenal renal failure and dehydration. 3. Mild metabolic acidosis secondary to diarrhea. 4. Hyponatremia, hypovolemic. 5. History of hypertension. 6. History of chronic obstructive pulmonary disease. 7. Appendectomy. 8. History of tubal ligation. 9. History of an ongoing nicotine dependence. 10.Mild to moderate protein calorie malnutrition with body mass index of 17.7. 11.FULL CODE. RECOMMENDATIONS AND DISCUSSION: In this 79-year-old woman who presented with multiple complex medical issues, we will monitor the patient closely, continue the current management and symptomatic treatment. Otherwise, we will continue with IV fluids. I would also recommend empiric antibiotics at this time. Monitor creatinine closely. Guarded prognosis. Further recommendations to follow. See orders for orders for details. Follow closely with Gastroenterology. The patient is willing to undergo endoscopies if it is absolutely necessary according to her. MMODL / BELLAN: [id number] /
[2019-09-22] MEDS: LEVOFLOXACIN 500MG-D5W PMX 500 MG in DEXTROSE/WATER 1 100ML.BAG IVPB SCH (17:14)
--- NOTE | 2019-09-22 18:02 | P.PN ---
Subjective Progress Note Date: 09/22/19 Principal diagnosis: Diarrhea Patient is seen lying in bed reporting 3 loose bowel movements over night but none since 7:30 this morning. She is tolerated advancement in her diet. No nausea or vomiting. Objective - Vital Signs Vital signs: Vital Signs Temp 98.3 F 09/22/19 07:00 Pulse 68 09/22/19 07:32 Resp 12 09/22/19 07:32 BP 151/90 09/22/19 07:00 Pulse Ox 97 09/22/19 07:00 Intake & Output 09/21/19 09/22/19 09/22/19 18:59 06:59 18:59 Other: Voiding Method Bedside Commode Bedside Commode Bedside Commode # Voids 3 1 1 # Bowel Movements 1 1 3 - Exam On physical examination, patient appears comfortable in no apparent distress. HEAD: Normocephalic, atraumatic. EYES: No scleral icterus. No conjunctival injection. MOUTH: No lesions, tongue midline. NECK: Trachea midline, no gross abnormalities. ABDOMEN: Soft, nontender to palpation. Bowel sounds are positive. No organomegaly. No guarding or rigidity. EXTREMITIES: No pedal edema. SKIN: No rashes, no jaundice. NEUROLOGIC: Alert and oriented x3. No focal deficits. - Labs CBC & Chem 7: 09/22/19 06:26 09/22/19 06:26 Labs: Abnormal Lab Results - Last 24 Hours (Table) 09/22/19 Range/Units 06:26 Chloride 113 H (98-107) mmol/L BUN 6 L (7-17) mg/dL Glucose 67 L (74-99) mg/dL Calcium 7.9 L (8.4-10.2) mg/dL Microbiology - Last 24 Hours (Table) 09/20/19 03:50 Stool Culture - Preliminary Stool Assessment and Plan (1) Diarrhea Narrative/Plan: 79-year-old female with history of hypertension and COPD who presented with 2 weeks of abdominal cramping and pain and diarrhea. She reports multiple loose nonbloody bowel movements daily. Denies any sick contacts, new medications or unusual foods. No nausea, vomiting, fevers or chills with the episode. Computed tomography scan negative for any intra-abdominal process. CBC negative for any fall in hemoglobin or leukocytosis. Unknown etiology, may be related to a viral gastroenteritis, IBS/functional bowel disorder, dietary intolerances or other etiology. Current Visit: Yes Status: Acute Code(s): R19.7 - DIARRHEA, UNSPECIFIED SNOMED Code(s): 02219287 (2) Abdominal pain Current Visit: Yes Status: Acute Code(s): R10.9 - UNSPECIFIED ABDOMINAL PAIN SNOMED Code(s): 62510868 Plan: Supportive care Diet low residual/low fiber/low lactose Bentyl added 4 times a day before meals and at night Loperamide discontinued and Lomotil added as needed for diarrhea Cholestyramine added Continue to monitor stool output Continue supportive care/IV fluid hydration No plans for endoscopic evaluation at this time, patient is insistent that she is unwilling to undergo endoscopy, however if symptoms persist we will reevaluate with the patient Thank you for allowing us participate in the care of the patient
[2019-09-22] MEDS: DIPHENOX-ATROP 2.5-0.025 MG 1 EACH TAB PO PRN (19:47)
[2019-09-23] MEDS: metroNIDAZOLE-NS PMX 500 MG in SALINE 1 100ML.BAG IVPB SCH ×3 (00:42→17:18)
[2019-09-23] MEDS: SODIUM CHLORIDE 0.9% 1,000 ML IV SCH ×2 (00:43→22:17)
[2019-09-23] MEDS: DIPHENOX-ATROP 2.5-0.025 MG 1 EACH TAB PO PRN ×2 (02:23→08:35)
[2019-09-23] MEDS: HEPARIN SODIUM,PORCINE 5,000 UNIT/ML 1 ML VIAL SQ SCH ×2 (08:34→22:15)
[2019-09-23] MEDS: METOPROLOL TARTRATE 50 MG TAB PO SCH ×2 (08:35→22:15)
[2019-09-23] MEDS: PANTOPRAZOLE 40 MG TABLET PO SCH (08:35)
[2019-09-23] MEDS: NICOTINE 7MG/24HR PATCH TRANSDERM SCH (08:37)
[2019-09-23] MEDS: CHOLESTYRAMINE (WITH SUGAR) 4 GM PACKET PO SCH ×3 (08:37→17:19)
[2019-09-23] MEDS: DICYCLOMINE 20 MG TAB PO SCH ×4 (08:37→22:15)
--- NOTE | 2019-09-23 11:22 | CDI ---
Documentation Clarification Form Date: 09/24/2019 11:13:38 AM From: Pricila LaLaneERVIN briscoe, CCDS Admit Date: 09/21/2019 08:43:00 AM Patient Name: Dieter Pelaez Visit Number: [id number] Discharge Date: ATTENTION: The Clinical Documentation Specialists (CDI) and [facility] Coding Staff appreciate your assistance in clarifying documentation. Please respond to the clarification below the line at the bottom and electronically sign. The CDI & [facility] Coding staff will review the response and follow-up if needed. Please note: Queries are made part of the Legal Health Record. If you have any questions, please contact the author of this message via ITS. Dr. Amor Ortiz: Malnutrition has been documented in 09/20 History & Physical and subsequent progress notes as "mild to moderate" protein calorie malnutrition. History/Risk Factors: COPD, Hypertension, Smoker. Clinical Indicators: Presented to the ED on 09/20 with diarrhea x2 weeks & abdominal pain. Labs: Na 133*, BUN 25^, Cr 2.14^, Gluc 101^, total Protein (6.8), Albumin (3.8). Current BMI: 17.7 Dietary Consult 09/22: Drinks Ensure at home. BMI: 17.7. Poor nutritional intake, 0% intake (patient is NPO). Appearance: underweight. At 86% of ideal weight. Has had 12 lb weight loss with diarrhea & fluid loss x3 weeks per the patient. Treatment: IV fluid bolus, IV fluid rate 1,000 mls @ 75/hr, po Questran, IV Levaquin & IV Flagyl. In your professional opinion, can you please clarify if these findings signify one of the following conditions? Mild Protein-Calorie Malnutrition Moderate Protein-Calorie Malnutrition Other condition, please specify Unable to determine (Last Revision: February 2019) Mild Protein-Calorie Malnutrition MTDD
[2019-09-23] MEDS: LEVOFLOXACIN 500MG-D5W PMX 500 MG in DEXTROSE/WATER 1 100ML.BAG IVPB SCH (16:11)
--- NOTE | 2019-09-23 16:32 | PN ---
PROGRESS NOTE DATE OF DICTATION: September 23, 2019 Patient is an 79-year-old pleasant white female who was admitted to the hospital with severe diarrhea for the last 2 weeks' duration. She has been having about 10-15 loose, watery bowel movements daily. So far, stool studies have been negative. Lactoferrin was positive. C-difficile was negative. This morning, she had about 6 loose, watery bowel movements today. She at this time is wanting to have a colonoscopy to evaluate this further. She has been having intermittent diarrhea for several years, but nothing has persisted for more than 2 weeks. PHYSICAL EXAMINATION: She appears comfortable. No apparent distress. VITAL SIGNS: Stable. Blood pressure is 155/83, pulse __, temperature 98.5. HEENT EXAMINATION: Unremarkable. Conjunctivae pink. Sclerae anicteric. Oral cavity no lesions. NECK: No JVD or lymph node enlargement. CHEST: Clear to auscultation. HEART: Regular rate and rhythm. ABDOMEN: Soft. Bowel sounds are positive. No organomegaly. EXTREMITIES: No pedal edema. NEUROLOGIC: Alert and oriented x 3. No focal deficits. LABS: From today, WBC is 6.8, hemoglobin 14.8, platelets are normal. Basic metabolic panel is within normal limits. Stool for occult blood was positive. Lactoferrin positive. Cryptosporidium and giardia antigen negative. IMPRESSION: Acute onset of diarrhea for the last 2 weeks' duration. Patient having bowel movements anywhere from 10-15 a day, which are loose and watery in consistency. So far, stool studies have been negative; however, lactoferrin was positive, and occult blood was positive. Rule out infectious colitis versus inflammatory bowel disease ___. She continues to be on empiric Flagyl and Levaquin and was also started on Lomotil as well as Bentyl to control the diarrhea. RECOMMENDATIONS: 1. Continue with empiric antibiotics. 2. Will proceed with a colonoscopy tomorrow. I had a lengthy discussion with the patient regarding the risks, benefits, and complications of the procedure, and she is agreeable to it. 3. In the meantime, we will follow with you closely. Thank you for this consultation. MMODL / IJN: [id number] /
[2019-09-23] MEDS ORDERED: PEG 3350-NA SULF,BICARB,CL/KCL 4,000 ML BOTTLE PO ONE (17:00)
--- NOTE | 2019-09-23 21:29 | PN ---
PROGRESS NOTE DATE OF SERVICE: 09/23/2019 This 79-year-old woman was admitted with subacute diarrhea, is also started on empiric antibiotics. Gastroenterology is following the patient. No chest pain. No palpitations. No fever. Colonoscopy is planned tomorrow by Dr. Reece. EXAM: Pulse is 79, blood pressure 143/80, respiration 18, temperature 98.1, pulse ox 97% on room air. HEENT: Conjunctivae normal. Oral mucosa moist. NECK: No jugular venous distention. No lymph node enlargement. CARDIOVASCULAR: S1, S2. RESPIRATORY: Diminished breath sounds at the bases. A few scattered rhonchi. ABDOMEN: Soft. Minimal diffuse distention. Nontender. No guarding or rigidity. LEGS: No edema, no swelling. NERVOUS SYSTEM: No focal deficits. LABS: WBC 6.2, hemoglobin 14.8, sodium 141. The stool testing is noted. ASSESSMENT: 1. Subacute diarrhea with severe dehydration present on admission, continuing, possibly infective in nature. 2. Rule out colitis. 3. Acute renal failure possibly secondary to acute diarrhea with acute tubular necrosis and prerenal renal failure factors and dehydration. 4. Mild metabolic acidosis secondary to diarrhea. 5. Hyponatremia, hypovolemic. 6. History of hypertension. 7. History of chronic obstructive pulmonary disease. 8. History of appendectomy. 9. History of tubal ligation. 10.History of ongoing nicotine dependence. 11.Mild to moderate protein calorie malnutrition with BMI of 17.7. 12.FULL CODE. RECOMMENDATIONS AND DISCUSSION: Recommend to continue current medications, continue to monitor, continue symptomatic treatment. Otherwise, empiric antibiotics. Follow closely with Gastroenterology. Possible colonoscopy and biopsy. Guarded prognosis because of multiple complex medical issues. Further recommendations to follow. MMODL / IJN: [id number] /
[2019-09-24] MEDS: metroNIDAZOLE-NS PMX 500 MG in SALINE 1 100ML.BAG IVPB SCH ×2 (00:46→08:00)
[2019-09-24] MEDS: SODIUM CHLORIDE 0.9% 1,000 ML IV SCH ×2 (05:35→08:00)
[2019-09-24] MEDS: HEPARIN SODIUM,PORCINE 5,000 UNIT/ML 1 ML VIAL SQ SCH (08:01)
[2019-09-24] MEDS: DICYCLOMINE 20 MG TAB PO SCH ×2 (08:01→14:51)
[2019-09-24] MEDS: CHOLESTYRAMINE (WITH SUGAR) 4 GM PACKET PO SCH (08:01)
[2019-09-24] MEDS: PANTOPRAZOLE 40 MG TABLET PO SCH (08:01)
[2019-09-24] MEDS ORDERED: MAGNESIUM CITRATE 296 ML BOTTLE PO ONE (08:43)
[2019-09-24] MEDS: METOPROLOL TARTRATE 50 MG TAB PO SCH (09:26)
[2019-09-24] MEDS: NICOTINE 7MG/24HR PATCH TRANSDERM SCH (09:26)
[2019-09-24] MEDS ORDERED: IV FLUID CONTINUATION 800 ML IV ONE (13:39)
[2019-09-24] MEDS ORDERED: PROPOFOL 10 MG/ML 20 ML VIAL IV ONE (13:39)
--- NOTE | 2019-09-24 14:06 | P.PCN ---
Date of Procedure: 09/24/19 Procedure(s) Performed: BRIEF HISTORY: Patient is a 79-year-old pleasant female, admitted hospital with chronic diarrhea for the last 1 month duration. She has bowel movements anywhere from 10-12 a day which are loose to watery in consistency. Initial stool studies were negative. She was treated empirically with antibiotics with no help. She is hence scheduled for colonoscopy to evaluate further. PROCEDURE PERFORMED: Colonoscopy with snare polypectomy and biopsy. PREOPERATIVE DIAGNOSIS: Chronic diarrhea for 1 month duration. IV sedation per Anesthesia. PROCEDURE: After informed consent was obtained, the patient, was brought into the endoscopy unit. IV sedation was administered by Anesthesia under continuous monitoring. Digital rectal examination was normal. Initially the Olympus CF-160 flexible video colonoscope was then inserted in the rectum, gradually advanced into the cecum without any Careful examination was performed as the scope was gradually being withdrawn. Ileocecal valve and the appendiceal orifice were visualized and appeared normal. Prep was excellent. Mucosa of the cecum, ascending colon, transverse colon, descending colon, sigmoid colon, and rectum appeared normal. In the mid rectum there were 2 polyps measuring 5 mm and 1 cm in size both of which were removed by snare polypectomy. Random biopsies were also done from ascending, transverse colon and descending colon to rule out metastatic/collagenous colitis. Retroflexion was performed in the rectum and no lesions were seen. The patient tolerated the procedure well. IMPRESSION: 5 mm and 1 cm rectal polyp status post-polypectomy Rest of the colon appeared normal with no evidence of colitis, status post random biopsies to rule out metastatic/collagenous colitis RECOMMENDATIONS: Findings of this examination were discussed with the patient as well as a family. She will follow with the biopsy results. In the meantime she will continue with Mili and Freddie and she can be discharged home today with outpatient follow-up in one to 2 weeks.
[2019-09-24 15:56] VITALS: BP 124/74; PULSE 55; RESP 17; TEMP 97.5
--- NOTE | 2019-09-24 16:23 | P.DS ---
Providers Date of admission: 09/21/19 08:43 Expected date of discharge: 09/24/19 Attending physician: Colton Yoo Consults: 09/19/19 23:34 Consult Physician Routine Consulting Provider: Anupam Ramirez Consult Reason/Comments: diarrhea sub acute Do you want consulting provider notified?: Yes Primary care physician: Colton Yoo Hospital Course: 79-year-old female was sent to the emergency room with complaints of chronic diarrhea. Patient had colonoscopy by Dr. Srivastava patient cleared for discharge Assessment Diarrhea with dehydration present on admission positive occult blood Colitis Acute renal failure secondary to acute diarrhea and dehydration improved Mild metabolic acidosis secondary to diarrhea Hyponatremia hypovolemic Hypertension history of chronic COPD stable Nicotine dependence Mild protein calorie malnutrition BMI 17.7 Plan Follow-up with family physician Dr. Colton Yoo Follow-up with gastroenterology Dr. Reece Patient Condition at Discharge: Good Plan - Discharge Summary Discharge Rx Participant: Yes New Discharge Prescriptions: New Dicyclomine [Bentyl] 20 mg PO ACHS #30 tab Cholestyramine (with Sugar) [Questran Packet] 4 gm PO TID BETWEEN MEALS PRN #42 packet PRN Reason: Diarrhea metroNIDAZOLE [Flagyl] 500 mg PO Q8HR 7 Days #21 tab Nicotine 7Mg/24Hr Patch [Habitrol] 1 patch TRANSDERM DAILY #28 patch Levofloxacin [Levaquin] 500 mg PO Q24H #7 tab Pantoprazole [Protonix] 40 mg PO AC-BRKFST #30 tablet. Acetaminophen Tab [Tylenol] 500 mg PO Q6HR PRN tab PRN Reason: Fever And/ Or Pain Continue amLODIPine BESYLATE/BENAZEPRIL [Lotrel 10-40 MG] 1 cap PO DAILY Metoprolol Tartrate [Lopressor] 50 mg PO BID Loperamide HCl [Imodium A-D] 2 - 4 mg PO QID PRN PRN Reason: Diarrhea Calcium/Vit D3(Unknown Dose) 0.5 tab PO DAILY Discharge Medication List Calcium/Vit D3(Unknown Dose) 0.5 tab PO DAILY 09/19/19 [History] Loperamide HCl [Imodium A-D] 2 - 4 mg PO QID PRN 09/19/19 [History] Metoprolol Tartrate [Lopressor] 50 mg PO BID 09/19/19 [History] amLODIPine BESYLATE/BENAZEPRIL [Lotrel 10-40 MG] 1 cap PO DAILY 09/19/19 [History] Acetaminophen Tab [Tylenol] 500 mg PO Q6HR PRN tab 09/24/19 [Rx] Cholestyramine (with Sugar) [Questran Packet] 4 gm PO TID BETWEEN MEALS PRN #42 packet 09/24/19 [Rx] Dicyclomine [Bentyl] 20 mg PO ACHS #30 tab 09/24/19 [Rx] Levofloxacin [Levaquin] 500 mg PO Q24H #7 tab 09/24/19 [Rx] Nicotine 7Mg/24Hr Patch [Habitrol] 1 patch TRANSDERM DAILY #28 patch 09/24/19 [Rx] Pantoprazole [Protonix] 40 mg PO AC-BRKFST #30 tablet. 09/24/19 [Rx] metroNIDAZOLE [Flagyl] 500 mg PO Q8HR 7 Days #21 tab 09/24/19 [Rx] Follow up Appointment(s)/Referral(s): Colton Yoo MD [Primary Care Provider] - 09/27/19 11:40 am Monica Reece MD [STAFF PHYSICIAN] - 10/10/19 8:30 am (You will be seeing the Hand Touch Up Painter Velma please arrive fifteen minutes early to go over paper work.)
[2019-09-25] MEDS ORDERED: metroNIDAZOLE 500 MG TAB PO SCH
--- NOTE | 2019-09-25 07:52 | CDI ---
Documentation Clarification Form Date: 09/25/2019 07:40:48 AM From: Maris Thompson Phone: If you have a question about this query, please contact Celina Chase, Escape Wheel Tooth Cutter at [phone] between 8am and 5pm. Admit Date: 09/21/2019 08:43:00 AM Patient Name: Dieter Pelaez Visit Number: [id number] Discharge Date: 09/24/2019 05:30:00 PM ATTENTION: The Clinical Documentation Specialists (CDI) and [facility] Coding Staff appreciate your assistance in clarifying documentation. Please respond to the clarification below the line at the bottom and electronically sign. The CDI & [facility] Coding staff will review the response and follow-up if needed. Please note: Queries are made part of the Legal Health Record. If you have any questions, please contact the author of this message via ITS. Dr. Amro Ortiz Acute renal failure possibly ATN was documented in the H and P and PN's and not carried to DCS. Please clairfy if patient had Acute renal failure due to ATN and dehydration. History/Risk Factors: dehydration Current BUN/Cr/GFR: BUN 25, Creat 2.14 GFR 21 Treatment: IVF In order to capture the severity of condition, please clarify if the condition signifies: Acute renal failure, Please specify etiology (if known): ATN ATN ruled out Tubular Necrosis Other, please specify Unable to determine ATN MTDD
[2019-09-25] MEDS ORDERED: LEVOFLOXACIN 500 MG TAB PO SCH (16:00)
== END 2019-09-24 17:30 | disposition home or self-care (01) | DRG 391 ==
LOC: EC 13:40 → 4SSUR 17:00 → OBSVTOIN 09-21 08:43
PROVIDERS: ADMIT Family Medicine; ATTEND Family Medicine
PROC: 0DBK8ZX Excision of Ascending Colon, Via Natural or Artificial Opening Endoscopic, Diagnostic (ICD-10-PCS; principal; 2019-09-24 07:30)
PROC: 0DBM8ZX Excision of Descending Colon, Via Natural or Artificial Opening Endoscopic, Diagnostic (ICD-10-PCS; principal; 2019-09-24 07:30)
PROC: 0DBL8ZX Excision of Transverse Colon, Via Natural or Artificial Opening Endoscopic, Diagnostic (ICD-10-PCS; principal; 2019-09-24 07:30)
PROC: 0DBP8ZX Excision of Rectum, Via Natural or Artificial Opening Endoscopic, Diagnostic (ICD-10-PCS; 2019-09-24 07:30)
DX: K52.9 Noninfective gastroenteritis and colitis, unspecified (principal); N17.0 Acute kidney failure with tubular necrosis; Z68.1 Body mass index [BMI] 19.9 or less, adult; E87.2 Acidosis; E87.1 Hypo-osmolality and hyponatremia; E44.1 Mild protein-calorie malnutrition; J44.9 Chronic obstructive pulmonary disease, unspecified; F17.210 Nicotine dependence, cigarettes, uncomplicated; I10 Essential (primary) hypertension; K62.1 Rectal polyp; Z79.899 Other long term (current) drug therapy; E86.1 Hypovolemia; Z82.3 Family history of stroke; Z80.0 Family history of malignant neoplasm of digestive organs; E86.0 Dehydration; Z98.51 Tubal ligation status; Z90.49 Acquired absence of other specified parts of digestive tract
CPT/HCPCS: 36415; 45380; 45385; 74176; 80048; 80053; 80074; 81001; 81003; 82150; 82272; 83630; 83690; 83735; 85025; 87045; 87046; 87324; 87328; 87329; 87502; 88305; 96360; 96361; 99285

== ENCOUNTER → 2020-07-10 | Outpatient (CLI) | payer MEDICARE, OTHER ==
--- NOTE | 2020-07-10 14:38 | XR ---
EXAMINATION TYPE: XR tibia fibula LT DATE OF EXAM: 07/10/2020 COMPARISON: None HISTORY: Chronic tibia and fibula pain TECHNIQUE: 2 view left tibia and fibula FINDINGS: No acute fracture or dislocation is evident. Joint spaces appear preserved. Soft tissues ar e normal. IMPRESSION: 1. Normal 2 view left tibia and fibula
--- NOTE | 2020-07-10 14:39 | XR ---
EXAMINATION TYPE: XR knee complete LT DATE OF EXAM: 07/10/2020 COMPARISON: None HISTORY: Unable to lift leg chronic knee pain TECHNIQUE: Three-view left knee FINDINGS: Medial lateral compartment joint spaces are preserved. Patellofemoral joint spaces preserve d. No joint effusion is evident. No acute fracture or dislocation is evident. IMPRESSION: 1. Unremarkable 3 view left knee
--- NOTE | 2020-07-10 14:41 | XR ---
EXAMINATION TYPE: XR lumbosacral spine min 4V DATE OF EXAM: 07/10/2020 COMPARISON: 06/22/2017 HISTORY: Chronic back pain TECHNIQUE: Five-view lumbar spine FINDINGS: Scoliosis is present. There is degenerative loss of disc height throughout the lumbar spine . There 5 lumbar-type vertebral bodies. Pedicles are intact. Mild facet degenerative changes are pres ent. In the sagittal plane there is some mild kyphosis through the lumbar spine. No spondylolisthesis is evident. Findings are stable over the interval. IMPRESSION: 1. Scoliosis and kyphosis lumbar spine. 2. Degenerative disc changes and facet changes discussed above
== END | disposition home or self-care (01) ==
LOC: RADXRMAIN 14:04
PROVIDERS: ATTEND Family Medicine
DX: M47.817 Spondylosis without myelopathy or radiculopathy, lumbosacral region (principal); M41.9 Scoliosis, unspecified; M51.36 Other intervertebral disc degeneration, lumbar region; M79.605 Pain in left leg
CPT/HCPCS: 72110

== ENCOUNTER → 2021-01-27 | Outpatient (CLI) | payer MEDICARE, OTHER ==
--- NOTE | 2021-01-28 09:24 | BD ---
EXAMINATION TYPE: Axial Bone Density DATE OF EXAM: 01/27/2021 COMPARISON: NONE CLINICAL HISTORY: Height: 62 Weight: 115.6 FRAX RISK QUESTIONS: Alcohol (3 or more units per day): no Family History (Parent hip fracture): no Glucocorticoids (More than 3mos): no (Ex: prednisone, prednisolone, methylprednisolone, dexamethasone, and hydrocortisone). History of Fracture in Adulthood: yes Secondary Osteoporosis: 1. Type 1 Diabetes: no 2. Hyperthyroidism: no 3. Menopause before 45: no 4. Malnutrition: no 5. Chronic liver disease: no Rheumatoid Arthritis: no Current Tobacco Use: yes RISK FACTORS HISTORY OF: History of Wrist Fracture: right wrist When: 2019 Surgery to Spine/Hip(right/left)/Wrist (right/left): no Family History of Osteoporosis: yes Active: no Diet low in dairy products/other sources of calcium: yes Postmenopausal woman: age 49 Lost more than 2 inches in height since high school: yes Frequent falls: yes MEDICATIONS: blood pressure meds, cholesterol meds Additional History: EXAM MEASUREMENTS: Bone mineral densitometry was performed using the [employer] System. Bone mineral density as measured about the Lumbar spine is: ----- L1-L4(G/cm2): 1.031 T Score Values are as follows: ----- L2: -2.1 ----- L3: -0.9 ----- L4: 0.6 ----- L1-L4: -1.2 Bone mineral density has: decreased-8.4 % since study of: 01.08.2018 Bone mineral density about the R hip (g/cm2): 0.718 Bone mineral density about the L hip (g/cm2): 0.832 T Score values are as follows: -----R Neck: -2.3 -----L Neck: -1.5 -----R Total: -2.3 -----L Total: -2.5 Bone mineral density has: decreased -7.2 % since study of: 01.08.2018 IMPRESSION: Osteoporosis. NOTE: T-SCORE=SD OF THE YOUNG ADULT MEAN.
== END | disposition home or self-care (01) ==
LOC: RADBDWWP 16:41
PROVIDERS: ATTEND Family Medicine
DX: Z13.820 Encounter for screening for osteoporosis (principal); M81.0 Age-related osteoporosis without current pathological fracture; M85.89 Other specified disorders of bone density and structure, multiple sites; Z78.0 Asymptomatic menopausal state
CPT/HCPCS: 77080

== ENCOUNTER → 2021-02-17 | Outpatient (CLI) | payer MEDICARE, OTHER ==
--- NOTE | 2021-02-17 13:58 | XR ---
EXAMINATION TYPE: XR chest 2V DATE OF EXAM: 02/17/2021 COMPARISON: 12/24/2018 HISTORY: Shortness of breath TECHNIQUE: Frontal and lateral views of the chest are obtained. FINDINGS: Scattered senescent parenchymal changes noted. Hyperinflation compatible with COPD. No evidence for infiltrate. No evidence for atelectasis. Heart size is stable. Mediastinal structures are stable and grossly unremarkable. No evidence for hilar prominence. Degenerative changes dorsal spine. IMPRESSION: 1. No evidence for acute pulmonary disease.
== END | disposition home or self-care (01) ==
LOC: RADXRMAIN 13:38
PROVIDERS: ATTEND Family Medicine
DX: R06.02 Shortness of breath (principal)
CPT/HCPCS: 71046

== ENCOUNTER 2023-05-10 18:06 | Inpatient (IN) | payer MEDICARE, OTHER ==
[2023-05-10] MEDS: SODIUM CHLORIDE 0.9% 500 ML 500 ML IV SCH (19:42)
[2023-05-10 19:45] LABS: Basophils % (A) 0 %; Eosinophils # (A) 0.1 k/uL (0-0.7); Eosinophils % (A) 2 %; HCT 43.1 % (34.0-46.0); HGB 14.4 gm/dL (11.4-16.0); Lymphocytes # (A) 0.8 k/uL (1.0-4.8); Lymphocytes % (A) 10 %; MCH 30.6 pg (25.0-35.0); MCHC 33.4 g/dL (31.0-37.0); MCV 91.8 fL (80.0-100.0); Mean Platelet Volume 9.7; Monocytes # (A) 0.7 k/uL (0-1.0); Monocytes % (A) 8 %; Neutrophils # (A) 6.6 k/uL (1.3-7.7); Neutrophils % (A) 79 %; Platelet Count 211 k/uL (150-450); RDW 14.3 % (11.5-15.5); WBC 8.4 k/uL (3.8-10.6)
--- NOTE | 2023-05-10 20:18 | XR ---
EXAMINATION TYPE: XR chest 2V DATE OF EXAM: 05/10/2023 8:14 PM COMPARISON: Chest radiographs from 02/17/2021 TECHNIQUE: XR chest 2V Frontal and lateral views of the chest. CLINICAL INDICATION:Female, 83 years old with history of Fever; FINDINGS: Lungs/Pleura: There is no evidence of pleural effusion, focal consolidation, or pneumothorax. Hyperi nflation compatible with COPD. Scattered senescent parenchymal changes. Pulmonary vascularity: Unremarkable. Heart/mediastinum: Cardiomediastinal silhouette is enlarged and stable. Atherosclerotic calcificatio ns are seen in the aorta. Musculoskeletal: No acute osseous pathology. Mild degenerative changes of the thoracic spine. IMPRESSION: Chronic changes without acute pulmonary process.
--- NOTE | 2023-05-10 20:22 | ED ---
General Adult HPI - General Chief complaint: Weakness Stated complaint: slurred speech,weakness Time Seen by Provider: 05/10/23 18:15 Source: patient, RN notes reviewed, old records reviewed Mode of arrival: wheelchair Limitations: no limitations - History of Present Illness Initial comments: This is an 83-year-old female whose daughter brings her to the emergency department because of overall weakness. Daughter states his been ongoing for the last 4 days patient also seems occasionally confused according to the daughter. Daughter did not indicate to me that the patient was having slurred speech when I asked her if she was she stated occasionally when she seems extremely tired she was having some slurred speech. Patient had no fever but was having the chills. Patient has a chronic cough but no worse than normal. Patient denies any chest pain or back pain. Patient denies any abdominal pain patient denies any nausea vomiting. Patient was unable to ambulate according to the daughter is very unusual - Related Data Home Medications Medication Instructions Recorded Confirmed amLODIPine BESYLATE/BENAZEPRIL 1 cap PO DAILY 09/19/19 05/10/23 [Lotrel 10-40 MG] Atorvastatin [Lipitor] 20 mg PO DAILY 05/10/23 05/10/23 Metoprolol Tartrate [Lopressor] 50 mg PO BID 05/10/23 05/10/23 Allergies Allergy/AdvReac Type Severity Reaction Status Date / Time No Known Allergies Allergy Verified 05/10/23 18:59 Review of Systems ROS Statement: Those systems with pertinent positive or pertinent negative responses have been documented in the HPI. ROS Other: All systems not noted in ROS Statement are negative. Past Medical History Past Medical History: COPD, Hypertension Additional Past Medical History / Comment(s): bone disease of spine History of Any Multi-Drug Resistant Organisms: None Reported Past Surgical History: Appendectomy, Tubal Ligation Past Anesthesia/Blood Transfusion Reactions: No Reported Reaction Past Psychological History: No Psychological Hx Reported Past Alcohol Use History: None Reported Past Drug Use History: None Reported - Past Family History Mother Family Medical History: Cancer, CVA/TIA Additional Family Medical History / Comment(s): Stomach Ca Father Additional Family Medical History / Comment(s): 6yrs after spinal surgery, not sure if it was from [place] General Exam - General Exam Comments Initial Comments: GENERAL: Patient is well-developed and well-nourished. Patient is nontoxic and well- hydrated and is in mild distress. ENT: Neck is soft and supple. No significant lymphadenopathy is noted. Oropharynx is clear. Moist mucous membranes. Neck has full range of motion without eliciting any pain. EYES: The sclera were anicteric and conjunctiva were pink and moist. Extraocular movements were intact and pupils were equal round and reactive to light. Eyeli ds were unremarkable. PULMONARY: Unlabored respirations. Good breath sounds bilaterally. No audible rales rhonchi or wheezing was noted. CARDIOVASCULAR: There is a regular rate and rhythm without any murmurs gallops or rubs. ABDOMEN: Soft and nontender with normal bowel sounds. SKIN: Skin is clear with no lesions or rashes and otherwise unremarkable. NEUROLOGIC: Patient is alert and oriented x3. Cranial nerves II through XII are grossly intact. Motor and sensory are also intact. Normal speech, volume and content. Symmetrical smile. MUSCULOSKELETAL: Normal extremities with adequate strength and full range of motion. LYMPHATICS: No significant lymphadenopathy is noted PSYCHIATRIC: Normal psychiatric evaluation. Limitations: no limitations Course Vital Signs 05/10/23 05/10/23 18:09 19:30 Temperature 98.2 F 99.3 F Pulse Rate 90 70 Respiratory 18 18 Rate Blood Pressure 131/68 140/78 O2 Sat by Pulse 98 98 Oximetry Medical Decision Making - Medical Decision Making EKG was interpreted by myself shows a sinus rhythm with occasional PAC at a rate of 76 bpm FL interval 182 QRS is 78 QT interval 38 QTC is 318. Patient's EKG shows no ST segment elevation or depression Was pt. sent in by a medical professional or institution (, PA, INFORMATION SYSTEMS OPERATOR, urgent care, hospital, or mcc...) When possible be specific @ -No Did you speak to anyone other than the patient for history (EMS, parent, family, police, friend...)? What history was obtained from this source @ -Daughter gives quite a bit of the history Did you review nursing and triage notes (agree or disagree)? Why? @ -I reviewed and agree with nursing and triage notes Were old charts reviewed (outside hosp., previous admission, EMS record, old EKG, old radiological studies, urgent care reports/EKG's, mcc records)? Report findings @ -I reviewed prior lab work prior charts on this patient Differential Diagnosis (chest pain, altered mental status, abdominal pain women, abdominal pain men, vaginal bleeding, weakness, fever, dyspnea, syncope, headache, dizziness, GI bleed, back pain, seizure, CVA, palpatations, mental health, musculoskeletal)? @ -Differential Weakness: Hypoglycemia, shock, sepsis, hyponatremia, anemia, infection, NM, ETOH, adverse medicine reaction, overdose, stroke, this is not meant to be an all-inclusive list. EKG interpreted by me (3pts min.). @ -As above X-rays interpreted by me (1pt min.). @ -Chest x-ray shows no acute abnormalities CT interpreted by me (1pt min.). @ -None done U/S interpreted by me (1pt. min.). @ -None done What testing was considered but not performed or refused? (CT, X-rays, U/S, labs)? Why? @ -None What meds were considered but not given or refused? Why? @ -None Did you discuss the management of the patient with other professionals (professionals i.e. , PA, INFORMATION SYSTEMS OPERATOR, lab, RT, psych nurse, social science teacher, exam proctor, teacher, customs and border protection officer, case sealer)? Give summary @ -I spoke with the [facility]ist agreed to admit the patient admitted the patient wrote admitting orders Was smoking cessation discussed for >3mins.? @ -No Was critical care preformed (if so, how long)? @ -No Were there social determinants of health that impacted care today? How? (Homelessness, low income, unemployed, alcoholism, drug addiction, transportation, low edu. Level, literacy, decrease access to med. care, [facility], rehab)? @ -No Was there de-escalation of care discussed even if they declined (Discuss DNR or withdrawal of care, Hospice)? DNR status @ -No What co-morbidities impacted this encounter? (DM, HTN, Smoking, COPD, CAD, Cancer, CVA, ARF, Chemo, Hep., AIDS, mental health diagnosis, sleep apnea, morbid obesity)? @ -None Was patient admitted / discharged? Hospital course, mention meds given and route, prescriptions, significant lab abnormalities, going to OR and other pertinent info. @ -Patient insisted she was unable to ambulate and 2 week get out of bed and wanted to be admitted so she could go to a mcc. Daughter was in agreement with this I spoke with [facility] hospitalist they were in agreement. Undiagnosed new problem with uncertain prognosis? @ -No Drug Therapy requiring intensive monitoring for toxicity (Heparin, Nitro, Insulin, Cardizem)? @ -No Were any procedures done? @ -No Diagnosis/symptom? @ -Generalized weakness Acute, or Chronic, or Acute on Chronic? @ -Acute Uncomplicated (without systemic symptoms) or Complicated (systemic symptoms)? @ -Complicated Side effects of treatment? @ -No Exacerbation, Progression, or Severe Exacerbation? @ -No Poses a threat to life or bodily function? How? (Chest pain, USA, NM, pneumonia, PE, COPD, DKA, ARF, appy, cholecystitis, CVA, Diverticulitis, Homicidal, Suicidal, threat to staff... and all critical care pts) @ -No - Lab Data Result diagrams: 05/10/23 19:29 05/10/23 19:48 Lab Results 05/10/23 05/10/23 05/10/23 Range/Units 19:29 19:29 19:48 WBC 8.4 (3.8-10.6) k/uL RBC 4.70 (3.80-5.40) m/uL Hgb 14.4 (11.4-16.0) gm/dL Hct 43.1 (34.0-46.0) % MCV 91.8 (80.0-100.0) fL MCH 30.6 (25.0-35.0) pg MCHC 33.4 (31.0-37.0) g/dL RDW 14.3 (11.5-15.5) % Plt Count 211 (150-450) k/uL MPV 9.7 Neutrophils % 79 % Lymphocytes % 10 % Monocytes % 8 % Eosinophils % 2 % Basophils % 0 % Neutrophils # 6.6 (1.3-7.7) k/uL Lymphocytes # 0.8 L (1.0-4.8) k/uL Monocytes # 0.7 (0-1.0) k/uL Eosinophils # 0.1 (0-0.7) k/uL Basophils # 0.0 (0-0.2) k/uL Sodium 137 (137-145) mmol/L Potassium 3.6 (3.5-5.1) mmol/L Chloride 102 (98-107) mmol/L Carbon Dioxide 27 (22-30) mmol/L Anion Gap 8 mmol/L BUN 16 (7-17) mg/dL Creatinine 0.50 L (0.52-1.04) mg/dL Est GFR (CKD-EPI)AfAm >90 (>60 ml/min/1.73 sqM) Est GFR (CKD-EPI)NonAf 89 (>60 ml/min/1.73 sqM) Glucose 94 (74-99) mg/dL Plasma Lactic Acid Festus 0.8 (0.7-2.0) mmol/L Calcium 8.8 (8.4-10.2) mg/dL Total Bilirubin 0.8 (0.2-1.3) mg/dL AST 24 (14-36) U/L ALT 18 (4-34) U/L Alkaline Phosphatase 70 (38-126) U/L Total Protein 6.5 (6.3-8.2) g/dL Albumin 3.5 (3.5-5.0) g/dL Urine Color Urine Appearance (Clear) Urine pH (5.0-8.0) Ur Specific [place] (1.001-1.035) Urine Protein (Negative) Urine Glucose (UA) (Negative) Urine Ketones (Negative) Urine Blood (Negative) Urine Nitrite (Negative) Urine Bilirubin (Negative) Urine Urobilinogen (<2.0) mg/dL Ur Leukocyte Esterase (Negative) Coronavirus (PCR) (Not Detectd) 05/10/23 05/10/23 Range/Units 20:07 20:40 WBC (3.8-10.6) k/uL RBC (3.80-5.40) m/uL Hgb (11.4-16.0) gm/dL Hct (34.0-46.0) % MCV (80.0-100.0) fL MCH (25.0-35.0) pg MCHC (31.0-37.0) g/dL RDW (11.5-15.5) % Plt Count (150-450) k/uL MPV Neutrophils % % Lymphocytes % % Monocytes % % Eosinophils % % Basophils % % Neutrophils # (1.3-7.7) k/uL Lymphocytes # (1.0-4.8) k/uL Monocytes # (0-1.0) k/uL Eosinophils # (0-0.7) k/uL Basophils # (0-0.2) k/uL Sodium (137-145) mmol/L Potassium (3.5-5.1) mmol/L Chloride (98-107) mmol/L Carbon Dioxide (22-30) mmol/L Anion Gap mmol/L BUN (7-17) mg/dL Creatinine (0.52-1.04) mg/dL Est GFR (CKD-EPI)AfAm (>60 ml/min/1.73 sqM) Est GFR (CKD-EPI)NonAf (>60 ml/min/1.73 sqM) Glucose (74-99) mg/dL Plasma Lactic Acid Festus (0.7-2.0) mmol/L Calcium (8.4-10.2) mg/dL Total Bilirubin (0.2-1.3) mg/dL AST (14-36) U/L ALT (4-34) U/L Alkaline Phosphatase (38-126) U/L Total Protein (6.3-8.2) g/dL Albumin (3.5-5.0) g/dL Urine Color Colorless Urine Appearance Clear (Clear) Urine pH 6.5 (5.0-8.0) Ur Specific [place] 1.008 (1.001-1.035) Urine Protein Negative (Negative) Urine Glucose (UA) Negative (Negative) Urine Ketones Negative (Negative) Urine Blood Negative (Negative) Urine Nitrite Negative (Negative) Urine Bilirubin Negative (Negative) Urine Urobilinogen <2.0 (<2.0) mg/dL Ur Leukocyte Esterase Negative (Negative) Coronavirus (PCR) Not Detected (Not Detectd) Disposition Clinical Impression: Generalized weakness Disposition: ADMITTED IP TO THIS HOSP Referrals: Colton Yoo MD [Primary Care Provider] - 1-2 days Time of Disposition: 21:18
[2023-05-10 20:30] LABS: Appearance,Urine Clear (Clear); Bilirubin,Urine Negative (Negative); Blood,Urine Negative (Negative); Color,Urine Colorless; Glucose,Urine (UA) Negative (Negative); Ketones,Urine Negative (Negative); Leukocyte Esterase,Urine Negative (Negative); Nitrite,Urine Negative (Negative); PH, Urine 6.5 (5.0-8.0); Protein,Urine Negative (Negative); Specific Gravity,Urine 1.008 (1.001-1.035); Urobilinogen,Urine <2.0 mg/dL (<2.0)
[2023-05-10 20:49] LABS: ALT 18 U/L (4-34); African American GFR (CKD) >90 (>60 ml/min/1.73 sqM); Albumin 3.5 g/dL (3.5-5.0); Anion Gap 8 mmol/L; Blood Urea Nitrogen 16 mg/dL (7-17); Calcium 8.8 mg/dL (8.4-10.2); Carbon Dioxide 27 mmol/L (22-30); Chloride 102 mmol/L (98-107); Glucose 94 mg/dL (74-99); Non-African American GFR(CKD) 89 (>60 ml/min/1.73 sqM); Sodium 137 mmol/L (137-145); Total Bilirubin 0.8 mg/dL (0.2-1.3); Total Protein 6.5 g/dL (6.3-8.2)
[2023-05-10 20:58] LABS: AST 24 U/L (14-36); Potassium 3.6 mmol/L (3.5-5.1)
[2023-05-10 20:59] LABS: Alkaline Phosphatase 70 U/L (38-126)
[2023-05-10] MEDS ORDERED: SODIUM CHLORIDE 0.9% 1,000 ML IV ONE (21:19)
[2023-05-11] MEDS: amLODIPine 10 MG TAB PO SCH (08:15)
[2023-05-11] MEDS: lisinopriL 20 MG TAB PO SCH (08:15)
[2023-05-11] MEDS: ATORVASTATIN 20 MG TAB PO SCH (08:16)
[2023-05-11] MEDS: METOPROLOL TARTRATE 50 MG TAB PO SCH (08:16)
[2023-05-11 14:00] VITALS: BMI 18.3
--- NOTE | 2023-05-11 19:47 | P.HPIM ---
History of Present Illness H&P Date: 05/11/23 Chief Complaint: Generalized weakness Patient is a 83-year-old female with a past medical history of hypertension, hyperlipidemia and COPD was brought to the hospital by her daughter due to generalized weakness. Patient has been more confused and difficulty getting out of bed for the past 4 days and occasionally confused. Otherwise no symptoms of focal weakness or slurred speech or weakness or seizures. No fever no chills. No nausea vomiting or diarrhea. Patient has been afebrile on admission. Chest x-ray showed chronic changes without acute pulmonary process. EKG showed sinus rhythm with occasional supraventricular premature complexes. Laboratory data showed WBC 8.4 hemoglobin 14.4 and platelets 211 Sodium 137, potassium 3.6, chloride 102, bicarb is 27 BUN 16 and creatinine 0.5 and blood sugar 94 lactic acid 0.8 liver enzymes are not elevated. Urinalysis i s negative for infection. Coronavirus PCR not detected. Review of Systems Constitutional: Patient denies any fever or chills . Generalized weakness. Abdomen: Patient denied any nausea or vomiting or abd. pain Cardiovascular: Patient denies any chest pain or short of breath no palpitations. Respiratory: patient denied any cough . no sputum production. No shortness of b reath Neurologic: Patient denied any numbness or tingling headache. Musculoskeletal: Patient denies any complaints of joint swelling or deformity. Endocrine: No heat or cold intolerance. No recent weight gain. Genitourinary: No dysuria or hematuria. Complete review of systems could not be obtained from the patient. Past Medical History Past Medical History: COPD, Hypertension Additional Past Medical History / Comment(s): bone disease of spine History of Any Multi-Drug Resistant Organisms: None Reported Past Surgical History: Appendectomy, Tubal Ligation Past Anesthesia/Blood Transfusion Reactions: No Reported Reaction Past Psychological History: No Psychological Hx Reported Smoking Status: Current every day smoker Past Alcohol Use History: None Reported Past Drug Use History: None Reported - Past Family History Mother Family Medical History: Cancer, CVA/TIA Additional Family Medical History / Comment(s): Stomach Ca Father Additional Family Medical History / Comment(s): 6yrs after spinal surgery, not sure if it was from [place] Medications and Allergies Home Medications Medication Instructions Recorded Confirmed Type amLODIPine BESYLATE/BENAZEPRIL 1 cap PO DAILY 09/19/19 05/10/23 History [Lotrel 10-40 MG] Atorvastatin [Lipitor] 20 mg PO DAILY 05/10/23 05/10/23 History Metoprolol Tartrate [Lopressor] 50 mg PO BID 05/10/23 05/10/23 History Allergies Allergy/AdvReac Type Severity Reaction Status Date / Time No Known Allergies Allergy Verified 05/10/23 18:59 Physical Exam Vitals: Vital Signs Temp Pulse Pulse Resp BP BP Pulse Ox 05/11/23 09:19 91 L 05/11/23 07:28 98.6 F 67 17 146/72 93 L 05/11/23 01:56 99.2 F 74 18 123/56 94 L 05/10/23 22:08 98.5 F 76 18 119/73 93 L 05/10/23 21:41 69 18 124/75 98 05/10/23 19:30 99.3 F 70 18 140/78 98 05/10/23 18:09 98.2 F 90 18 131/68 98 Intake and Output 05/10/23 05/11/23 05/11/23 22:59 06:59 14:59 Other: Voiding Method External Catheter # Voids 4 Weight 45.359 kg PHYSICAL EXAMINATION: Patient is lying in the bed comfortably, no acute distress, awake alert and oriented.. HEENT: Normocephalic. Neck is supple. Pupils reactive. Nostrils clear. Oral cavity is moist. Cystic lesion on the mid scalp region with Some crusting on the side. No discharge or worsening pain. Neck reveals no JVD, carotid bruits, or thyromegaly. CHEST EXAMINATION: Trachea is central. Symmetrical expansion. Lung lawrence clear to auscultation and percussion. CARDIAC: Normal S1, S2 with no gallops. No murmurs ABDOMEN: Soft. Bowel sounds present. Nontender. No organomegaly. No abdominal bruits. Extremities: reveal no edema. No clubbing or cyanosis Neurologically awake, alert, oriented x2-3 and patient is able to move all ex tremities. No gross focal deficits noted. Mild cognitive impairment. Skin: No rash or skin lesions. Psychiatric: Coperative. Nonsuicidal, Musculoskeletal: No joint swelling or deformity. Normal range of motion. Results CBC & Chem 7: 05/10/23 19:29 05/10/23 19:48 Labs: Abnormal Lab Results - Last 24 Hours (Table) 05/10/23 05/10/23 Range/Units 19:29 19:48 Lymphocytes # 0.8 L (1.0-4.8) k/uL Creatinine 0.50 L (0.52-1.04) mg/dL Thrombosis Risk Factor Assmnt - DVT/VTE Prophylaxis DVT/VTE Prophylaxis: Pharmacologic Prophylaxis ordered - Choose All That Apply Each Risk Factor Represents 3 Points: Age 75 years or older Thrombosis Risk Factor Assessment Total Risk Factor Score: 3 Thrombosis Risk Factor Assessment Level: Moderate Risk Assessment and Plan Assessment: Generalized weakness, unable to ambulate and poor oral intake Medical debility Hypertension Hyperlipidemia COPD not in exacerbartion Mild cognitive impairment DVT prophylaxis with heparin subcu Plan: Patient will be continued on gentle IV hydration and increase oral intake. Patient will be started back on home blood pressure medications and follow-up TSH, B12 and folate levels. PT OT consult and possible ECF transfer. Time with Patient: Greater than 30
[2023-05-11] MEDS: HEPARIN SODIUM,PORCINE 5,000 UNIT/ML 1 ML VIAL SQ SCH (22:42)
[2023-05-12] MEDS: ATORVASTATIN 20 MG TAB PO SCH (08:35)
[2023-05-12] MEDS: amLODIPine 10 MG TAB PO SCH (08:35)
[2023-05-12] MEDS: lisinopriL 20 MG TAB PO SCH (08:35)
[2023-05-12] MEDS: HEPARIN SODIUM,PORCINE 5,000 UNIT/ML 1 ML VIAL SQ SCH (08:35)
[2023-05-12] MEDS: METOPROLOL TARTRATE 50 MG TAB PO SCH (08:35)
[2023-05-12] MEDS: ACETAMINOPHEN TAB 325 MG TAB PO PRN (08:45)
[2023-05-12 09:22] LABS: BUN/Creat Ratio 21.67 Ratio (12.00-20.00); Calcium 8.5 mg/dL (8.7-10.3); Carbon Dioxide 25.3 mmol/L (21.6-31.8); Chloride 103 mmol/L (96-109); Glucose 104 mg/dL (70-110); Potassium 3.3 mmol/L (3.5-5.5); Sodium 141 mmol/L (135-145)
[2023-05-12 09:53] LABS: Basophils # (A) 0.03 X 10*3/uL (0.00-0.10); Basophils % (A) 0.4 %; Eosinophils # (A) 0.01 X 10*3/uL (0.04-0.35); Eosinophils % (A) 0.1 %; HCT 43.2 % (37.2-46.3); HGB 14.3 d/dL (12.0-15.0); Lymphocytes # (A) 0.69 X 10*3/uL (0.90-5.00); Lymphocytes % (A) 8.2 %; MCHC 33.1 d/dL (32.0-37.0); MCV 90.6 FL (80.0-97.0); Mean Platelet Volume 12.2 FL (9.5-12.2); Monocytes # (A) 0.65 X 10*3/uL (0.20-1.00); Monocytes % (A) 7.7 %; NRBC Per 100 WBC 0 X 10*3/uL (0.00-0.01); Neutrophils # (A) 7.06 X 10*3/uL (1.80-7.70); Neutrophils % (A) 83.4 %; Platelet Count 232 X 10*3/uL (140-440); RBC 4.77 X 10*6/uL (4.10-5.20); RDW 14.7 % (11.5-14.5); WBC 8.46 X 10*3/uL (4.50-10.00)
--- NOTE | 2023-05-12 12:19 | CDI ---
Documentation Clarification Form Date: 05/12/2023 12:14:46 PM From: Ruchi Moon RN, CCDS Admit Date: 05/10/2023 09:20:00 PM Patient Name: Dieter Pelaez Visit Number: [id number] Discharge Date: ATTENTION: The Clinical Documentation Specialists (CDI) and [facility] Coding Staff appreciate your assistance in clarifying documentation. Please respond to the clarification below the line at the bottom and electronically sign. The CDI & [facility] Coding staff will review the response and follow-up if needed. Please note: Queries are made part of the Legal Health Record. If you have any questions, please contact the author of this message via ITS. Dr. Eddie Mcmahon Your patient has the documented symptom of generalized weakness, unable to ambulate and poor oral intake, medical debility. Additional clarification regarding the etiology/cause of this symptom is requested. History/Risk Factors: hypertension, hyperlipidemia and COPD, Current every day smoker Clinical Indicators 83-year-old female present with generalized weakness. Patient has been more confused and difficulty getting out of bed for the past 4 days and occasionally confused. Neurologically awake, alert, oriented x2-3 and patient is able to move all extremities. H/P has Mild cognitive impairment. Labs: WBC 8.4 CR 0.50, BUN/CR Ratio: 21.67 UA-Negative 05/10 VS: 131/68 90 18 98.2 98% RA Treatment: .9NS 500MLBolus then @ 75 ML/HR 05/10-05/11 PT OT Consult Case Management/Social work assessment ECF Placement Can the generalized weakness, medical debility be further specified? [ ] Age related physical debility [ ] Age related cognitive decline [ x ] Unable to determine [ ] Other, please specify (Template Last Reviewed: September 2020) MTDD
[2023-05-12] MEDS ORDERED: Potassium Replacement Protocol 1 EACH MISC MISCELLANE PRN (13:48)
[2023-05-12] MEDS: POTASSIUM CHLORIDE ER 20 MEQ TAB.ER PO SCH ×3 (14:59→16:53)
--- NOTE | 2023-05-12 17:00 | CT ---
EXAMINATION TYPE: CT brain wo con CT DLP: 1079.4 mGycm, Automated exposure control for dose reduction was used. DATE OF EXAM: 05/12/2023 4:34 PM COMPARISON: 06/16/2019.. CLINICAL INDICATION:Female, 83 years old with history of altered mental status, AMS TECHNIQUE: Brain: Axial CT images of the brain were obtained with coronal and sagittal reformats created and rev iewed. Contrast used: None. Oral contrast used: None. FINDINGS: Brain: Extra-axial spaces: No abnormal extra-axial fluid collections. Ventricular system: Within normal limits Cerebral parenchyma: Extensive vasogenic edema within the right cerebrum with heterogenous appearing right middle cranial fossa/right temporal lobe. Findings are new from prior. High density material is seen along a lower density area measuring approximately 3.4 x 1.7 cm. Leftward subfalcine herniation upwards of 12 mm Cerebellum: Unremarkable. Intracranial vasculature: Atherosclerotic calcifications of the intracranial vessels. Soft tissues: Normal. Calvarium/osseous structures: No depressed skull fracture. Paranasal sinuses and mastoid air cells: Mild scattered paranasal sinus disease. Visualized orbits: Orbital contents are intact. IMPRESSION: 1. Extensive vasogenic edema with heterogenous appearing right middle cranial fossa/right temporal l obe. There is a low-density area with higher density surrounding it suggestive of possible intraparen chymal mass and even a hemorrhagic mass not entirely excluded. Further evaluation MRI with IV contras t recommended. 2. Leftward subfalcine herniation up to 12 mm secondary to #1. 3. Findings communicated to Dr. Marlene Lawrence on 05/12/2023 4:[address] Timothy Vasquez.
--- NOTE | 2023-05-12 20:28 | P.PN ---
Subjective Progress Note Date: 05/12/23 Patient is a 83-year-old female with a past medical history of hypertension, hyperlipidemia and COPD was brought to the hospital by her daughter due to generalized weakness. Patient has been more confused and difficulty getting out of bed for the past 4 days and occasionally confused. Otherwise no symptoms of focal weakness or slurred speech or weakness or seizures. No fever no chills. No nausea vomiting or diarrhea. Patient has been afebrile on admission. Chest x-ray showed chronic changes without acute pulmonary process. EKG showed sinus rhythm with occasional supraventricular premature complexes. Laboratory data showed WBC 8.4 hemoglobin 14.4 and platelets 211 Sodium 137, potassium 3.6, chloride 102, bicarb is 27 BUN 16 and creatinine 0.5 and blood sugar 94 lactic acid 0.8 liver enzymes are not elevated. Urinalysis is negative for infection. Coronavirus PCR not detected. 05/12/2023 Patient is seen and evaluated in follow-up today continues to be confused with generalized weakness. Patient is afebrile with no reports of chest pain or shortness of breath. Patient awaiting PT/OT evaluation and discussing possible ECF. Patient is poor historian and reporting that she does have a walker at the home although reports her children do not let her use it. Awaiting to discuss with daughter who she lives with to obtain further information regarding her mentation and baseline status. Patient is tolerating diet with no reported nausea or vomiting noted. Patient had significant weakness that had been progressing over the last few days along with altered mentation and confusion will obtain CT brain and neurology consultation. Review of systems: Constitutional: No reports of fatigue, fever, or chills Cardiovascular: No reports of chest pain or palpitations Respiratory: No reports of shortness of breath or cough GI: No reports of nausea, vomiting, or diarrhea : No reports of dysuria or retention Neurovascular: And inability to ambulate reports of weakness And inability to ambulate All medications have been reviewed PHYSICAL EXAMINATION: Patient is sitting up in the chair, awake alert and oriented 1-2, thin built, elderly appearing.. HEENT: Normocephalic. Neck is supple. Pupils reactive. Nostrils clear. Oral cavity is moist. Cystic lesion on the mid scalp region with Some crusting on the side. No discharge or worsening pain. Neck reveals no JVD, carotid bruits, or thyromegaly. CHEST EXAMINATION: Trachea is central. Symmetrical expansion. Lung lawrence clear to auscultation and percussion. CARDIAC: Normal S1, S2 with no gallops. No murmurs ABDOMEN: Soft. Bowel sounds present. Nontender. No organomegaly. No abdominal bruits. Extremities: reveal no edema. No clubbing or cyanosis Neurologically awake, alert, oriented x1-2-3 with continued confusion, patient is able to move all extremities. Diffusely weak Mild cognitive impairment. Skin: No rash or skin lesions. Chronic appearing cystic lesion on the mid scalp with crusting noted, no drainage noted Psychiatric: Cooperative. Non-suicidal, Musculoskeletal: No joint swelling or deformity. Normal range of motion. Assessment: Generalized weakness with inability unable to ambulate possibly secondary to extensive vasogenic edema with heterogenous appearing right middle cranial fossa/right temporal lobe with possible intraparenchymal mass or even hemorrhagic mass not entirely excluded as noted on CT brain Moderate protein calorie malnutrition with a BMI of 18.3 with poor oral intake Medical debility Mild electrolyte abnormalities including low potassium secondary to poor oral intake Hypertension Hyperlipidemia COPD not in exacerbartion Mild cognitive impairment with concerns of possible dementia DVT prophylaxis, SCDs only GI prophylaxis No code Plan: Patient will be continued on gentle IV hydration and increase oral intake. Will place patient on aspiration precautions of head of the bed elevated 45 at all times, dysphagia chopped diet and supervision with meals Patient per daughter has been having increased confusion with altered mentation and inability to ambulate with weakness that had been progressing over the last few days. Lengthy discussion was had with daughter of which patient resides with and has been noticing progressive weakness over the last few months with concerns of worsening mentation and possible dementia. CT brain obtained which showed extensive vasogenic edema with heterogenous appearing right middle cranial fossa/right temporal lobe with a low density area with higher density surrounding suggestive of possible intraparenchymal mass or even a hemorrhagic mass is not clearly excluded recommending MRI for further evaluation and also a leftward subfalcine herniation up to 12 m secondary to the vasogenic edema. Will consult neurology and hold heparin and any blood thinners at this time. SCDs for DVT prophylaxis Follow-up labs ordered for a.m. as well as MRI of the brain. Awaiting neurology consultation. Discussed CODE STATUS with the patient and daughter and daughter reports patient has always told her she wants no code PT OT evaluation recommending rehab and [facility] has accepted all awaiting neurology evaluation due to these new findings on CT Due to multiple complex medical issues, prognosis is guarded The impression and plan of care has been dictated by Marlene Lawrence, Nurse Practitioner as directed. Dr. Angel MD I have performed a history and examination and MDM of this patient, discussed the same with the dictator, and agree with the dictator's assessment and plan as written ,documented as a scribe. Based on total visit time, I have performed more than 50% of the visit. . Objective - Vital Signs Vital signs: Vital Signs Temp 97.9 F 05/12/23 07:18 Pulse 71 05/12/23 07:18 Resp 19 05/12/23 07:18 BP 137/87 05/12/23 07:18 Pulse Ox 91 L 05/12/23 09:36 FiO2 Intake & Output 05/11/23 05/12/23 05/12/23 18:59 06:59 18:59 Output Total 700 200 250 Balance -700 -200 -250 Weight 45.359 kg Output: Urine 700 200 250 Other: Voiding Method External Catheter External Catheter External Catheter # Voids 3 - Labs CBC & Chem 7: 05/12/23 06:09 05/12/23 06:09 Labs: Abnormal Lab Results - Last 24 Hours (Table) 05/12/23 05/12/23 Range/Units 06:09 06:09 RDW 14.7 H (11.5-14.5) % Lymphocytes # 0.69 L (0.90-5.00) X 10*3/uL Eosinophils # 0.01 L (0.04-0.35) X 10*3/uL Potassium 3.3 L (3.5-5.5) mmol/L Anion Gap 12.70 H (4.00-12.00) mmol/L BUN/Creatinine Ratio 21.67 H (12.00-20.00) Ratio Calcium 8.5 L (8.7-10.3) mg/dL Microbiology - Last 24 Hours (Table) 05/10/23 19:32 Blood Culture - Preliminary Blood 05/10/23 19:15 Blood Culture - Preliminary Blood
[2023-05-13 09:57] LABS: Basophils # (A) 0.02 X 10*3/uL (0.00-0.10); Basophils % (A) 0.2 %; Eosinophils # (A) 0 X 10*3/uL (0.04-0.35); Eosinophils % (A) 0 %; HCT 44.9 % (37.2-46.3); HGB 15.1 d/dL (12.0-15.0); Lymphocytes # (A) 0.53 X 10*3/uL (0.90-5.00); Lymphocytes % (A) 5.7 %; MCH 30.1 pg (27.0-32.0); MCHC 33.6 d/dL (32.0-37.0); MCV 89.4 FL (80.0-97.0); Mean Platelet Volume 11.7 FL (9.5-12.2); Monocytes # (A) 0.53 X 10*3/uL (0.20-1.00); Monocytes % (A) 5.7 %; NRBC Per 100 WBC 0 X 10*3/uL (0.00-0.01); Neutrophils # (A) 8.12 X 10*3/uL (1.80-7.70); Neutrophils % (A) 88.2 %; Platelet Count 224 X 10*3/uL (140-440); RBC 5.02 X 10*6/uL (4.10-5.20); RDW 14.8 % (11.5-14.5); WBC 9.22 X 10*3/uL (4.50-10.00)
[2023-05-13 10:08] LABS: Blood Urea Nitrogen 10.3 mg/dL (9.0-27.0); Calcium 8.8 mg/dL (8.7-10.3); Carbon Dioxide 26.9 mmol/L (21.6-31.8); Chloride 102 mmol/L (96-109); Glucose 121 mg/dL (70-110); Magnesium 1.9 mg/dL (1.5-2.4); Potassium 3.5 mmol/L (3.5-5.5); Sodium 140 mmol/L (135-145)
[2023-05-13] MEDS: lisinopriL 20 MG TAB PO SCH (10:11)
[2023-05-13] MEDS: ACETAMINOPHEN TAB 325 MG TAB PO PRN (10:11)
[2023-05-13] MEDS: amLODIPine 10 MG TAB PO SCH (10:12)
[2023-05-13] MEDS: ATORVASTATIN 80 MG TAB PO SCH (10:12)
[2023-05-13] MEDS: METOPROLOL TARTRATE 50 MG TAB PO SCH (10:12)
--- NOTE | 2023-05-13 10:42 | MR ---
EXAMINATION TYPE: MR brain wo/w con DATE OF EXAM: 05/13/2023 10:02 AM CLINICAL INDICATION:Female, 83 years old with history of altered mentation, abnormal findings on ct, Altered mentation, Abnormal findings on CT COMPARISON: 05/12/2023 TECHNIQUE: Multi planar, multi sequence imaging was performed through the brain including: T1, T2, In version recovery, susceptibility weighted imaging and gradient echo imaging and Diffusion weighted im aging. The patient was then given intravenous contrast and multi planar, T1 fat-saturation images wer e obtained. IV Contrast: 4.5 cc Gadavist FINDINGS: Confirmation of heterogenous right temporal lobe mass with central nonenhancement family the peripher y with multiple septations. There remains leftward midline shift up to 9 mm. There is extensive vasog enic edema around the lesion which measures roughly 5.1 x 5.3 x 5.2 cm. Diffusion-weighted imaging do es demonstrate some mild scattered areas of high DWI with associated low ADC signal. Scattered bloomi ng artifact extending into this region suggestive of hemosiderin disposition. A lot of the blooming a rtifact is a linear morphology. The bone marrow signal is within normal limits. Paranasal sinuses and mastoid air cells: No significant paranasal sinus disease. Visualized orbits: Left aphakia. IMPRESSION: Heterogenous mass which is predominantly peripherally enhancing with evidence of hemorrhage. Findings suspicious for high-grade primary brain malignancy with with infection felt to be less. 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
[2023-05-13] MEDS: FOLIC ACID 1 MG TAB PO SCH (12:19)
[2023-05-13] MEDS: THIAMINE 100 MG TAB PO SCH (12:19)
[2023-05-13] MEDS: MULTIVITAMINS, THERA 1 EACH TAB PO SCH (12:19)
[2023-05-13] MEDS: DEXAMETHASONE SOD PHOSPHATE 4 MG/ML 1 ML VIAL IVP SCH ×3 (12:19→23:44)
--- NOTE | 2023-05-13 14:24 | P.CNNES ---
History of Present Illness Consult date: 05/13/23 Requesting physician: Marlene Lawrence Reason for Consult: abnormal findings on ct, altered mentation History of Present Illness: Patient is a 83-year-old ambidextrous female, otherwise healthy, lives with her daughter, brought to the hospital by her daughter day before yesterday at 6:06 PM. for generalized weakness since end of April 2023. Patient not able to provide any history. As per patient's daughter Janice, who came later and provided with history. She says that she went on a vacation from 04/24/2023 and returned on 04/30/2023. When she came home, patient was not walking fast. She was hanging onto the mayes or hanging onto the patient's daughter when walking. Patient's daughter asked if she was okay, she said that she was just having bad headaches and just feels tired. At baseline she used to walk independently. As the days past on, patient could not lift herself and the weakness progressively got worse. 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 Patient will be talking something and she would talk about something else. Patient's daughter decided to bring her to the hospital. Patient's daughter also noticed that she is not looking normally, sometimes not looking to her left side. No seizures. Patient tells me that she has history of bad headaches all her life. She says that they were so bad that she would pass out and hit on the floor. She was told that she has migraines. She states that it feels like a hammer hitting on the wood. Patient says that her headaches are lasting longer than usual. Patient's vitals on arrival blood pressure 131/68, pulse rate 90, temperature 98.2. Blood test shows normal CBC, CMP, UA. Coronavirus PCR negative. Chest x-ray showed chronic changes without acute pulmonary process. EKG shows sinus rhythm with occasional supraventricular premature complexes. CT had revealed extensive vasogenic edema with heterogenous appearing right middle cranial fossa/right temporal lobe. There is a low density area with higher density surrounding it, suggestive of possible intraparenchymal mass and even a hemorrhagic mass not entirely excluded. Further evaluation MRI with IV contrast commended. Leftward subfalcine herniation up to 12 mm secondary to #1. I personally reviewed CT head, agree with the findings. MRI of the brain with and without contrast performed today revealed heterogeneous mass which is predominantly peripherally enhancing with evidence of hemorrhage. Findings suspicious for high-grade primary brain malignancy with the infection felt to be less likely. 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 I personally reviewed MRI, agree with the findings. Patient has history of smoking 1 pack per day for 50 years, still smokes. Review of Systems As per report from patient's daughter. Constitutional: Reports chronic headaches, Reports fever, Reports weight loss, Denies chills Eyes: left loss of peripheral vision, bilateral blurred vision, denies pain Ears: deny: decreased hearing, ear discharge Ears, nose, mouth and throat: Reports headache, Reports nasal congestion, Denies sore throat Cardiovascular: Reports shortness of breath, Denies chest pain Respiratory: Reports cough, Reports excessive sputum Gastrointestinal: Reports diarrhea, Denies abdominal pain, Denies nausea, Denies vomiting Genitourinary: Reports stress incontinence, Reports urge incontinence, Reports urinary frequency, Denies dysuria, Denies hematuria Musculoskeletal: Reports low back pain, Reports neck pain, Denies myalgias Integumentary: Denies pruritus, Denies rash Neurological: Reports as per HPI Psychiatric: Reports anxiety, Reports depression Endocrine: Reports fatigue, Reports weight change Hematologic/Lymphatic: Reports easy bleeding, Reports easy bruising Past Medical History Past Medical History: COPD, Hypertension Additional Past Medical History / Comment(s): bone disease of spine History of Any Multi-Drug Resistant Organisms: None Reported Past Surgical History: Appendectomy, Tubal Ligation Past Anesthesia/Blood Transfusion Reactions: No Reported Reaction Past Psychological History: No Psychological Hx Reported Smoking Status: Current every day smoker Past Alcohol Use History: None Reported Past Drug Use History: None Reported - Past Family History Mother Family Medical History: Cancer, CVA/TIA Additional Family Medical History / Comment(s): Stomach Ca Father Additional Family Medical History / Comment(s): 6yrs after spinal surgery, not sure if it was from [place] Medications and Allergies Home Medications Medication Instructions Recorded Confirmed Type amLODIPine BESYLATE/BENAZEPRIL 1 cap PO DAILY 09/19/19 05/10/23 History [Lotrel 10-40 MG] Atorvastatin [Lipitor] 20 mg PO DAILY 05/10/23 05/10/23 History Metoprolol Tartrate [Lopressor] 50 mg PO BID 05/10/23 05/10/23 History Allergies Allergy/AdvReac Type Severity Reaction Status Date / Time No Known Allergies Allergy Verified 05/10/23 18:59 Physical Examination - Vital Signs Vital Signs: Vital Signs Temp Pulse Resp BP Pulse Ox 05/13/23 07:43 98.2 F 104 H 20 154/84 92 L 05/13/23 02:00 97.5 F L 95 16 132/79 94 L 05/12/23 20:00 98.2 F 83 16 126/69 96 05/12/23 13:52 99.1 F 77 17 106/57 92 L Intake and Output 05/12/23 05/13/23 05/13/23 22:59 06:59 14:59 Output Total 400 Balance -400 Output: Urine 400 Other: Voiding Method External Catheter External Catheter # Voids 2 # Bowel Movements 0 Patient is an elderly female, who is slightly somnolent, lethargic. Patient was initially asleep. On waking up, patient was lethargic, somnolent, but slowly able to perk up more and was able to answer questions. Patient sometimes mumbles. Other times she speaks very clearly. She is oriented to time place and person. She knows it is May 2023 and that she is in [facility] and name of the current president Mr. Ward. She knows that she is in [facility]. Speech and language functions are normal. Patient can name and repeat very well. No aphasia or dysarthria. Attention, concentration is diminished and fund of knowledge is adequate. Detail testing deferred. On cranial nerve examination, pupils are equal, round and reacting to light. Her right pupil has opacity probably from cataract. Her visual lawrence revealed probable left-sided neglect/cut. Extraocular muscles reveals patient has preference of her gaze to the right. However she brings gaze to the midline, but does not to the left. There is no nystagmus. Face is symmetric, tongue protrudes to the midline. Palatal elevation and sensation normal, hearing is slightly decreased perhaps from altered mentation, and shoulder shrug normal on the right, much decreased on the left. Facial sensation normal. On muscle strength testing, patient has left hemiparesis. She is moving her right arm and right leg much more normally with holding the left arm down. On manually lifting the arm, she holds her right arm, but the left side fall down immediately. Likewise she is moving her right leg better than the left. Deep tendon reflexes are symmetric 1 at the biceps, 1 brachioradialis, 0 at the knees, plantar is downgoing on the right, up on the left. Sensory to touch is significantly decreased on the left, with neglect on the left side. Cerebellar function patient did not cooperate. Tone is increased on the left and bulk of muscles normal. Gait deferred.. On general examination, there is no carotid bruit or murmur, S1-S2 audible. Chest is clear on consultation. Abdomen is soft nontender. No organomegaly, bowel sounds present. Peripheral pulses are present. No edema. Results - Laboratory Findings CBC and BMP: 05/14/23 06:36 05/14/23 06:36 Abnormal Lab Findings: Abnormal Labs 05/10/23 05/10/23 05/12/23 19:29 19:48 06:09 Hgb RDW 14.7 H Neutrophils # Lymphocytes # 0.8 L 0.69 L Eosinophils # 0.01 L Potassium Anion Gap Creatinine 0.50 L BUN/Creatinine Ratio Glucose Calcium 05/12/23 05/13/23 05/13/23 06:09 06:33 06:33 Hgb 15.1 H RDW 14.8 H Neutrophils # 8.12 H Lymphocytes # 0.53 L Eosinophils # 0 L Potassium 3.3 L Anion Gap 12.70 H Creatinine 0.5 L BUN/Creatinine Ratio 21.67 H 20.60 H Glucose 121 H Calcium 8.5 L Assessment and Plan Assessment: * Large heterogeneous intracerebral mass which is predominantly peripherally enhancing with evidence of hemorrhage. 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 Patient has presented with progressive weakness, slurred speech and mental confusion. Examination reveals left hemiparesis, left hemisensory loss and left visual field deficit. * Tobacco use, 50 pack years * Long-standing history of migraine headaches * Weight loss Plan: * MRI of the brain was done, which revealed a heterogeneous mass which is predominantly peripherally enhancing with evidence of hemorrhage. Findings suspicious for high-grade primary brain malignancy with the infection felt to be less likely. 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 I personally reviewed MRI of the brain, agree with the findings. Appears primary malignancy. * I discussed with patient's daughter in detail about the MRI results, and also reviewed MRI on the computer. Patient's daughter does not want patient to go through aggressive workup and treatment and prefers her to be comfortable. * Oncology also has been consulted, and she will discuss further with oncology regarding options. * We will check EEG evaluate for epileptiform activity. * Start Keppra 500 mg twice a day, if EEG shows epileptiform activity. * Agree with starting dexamethasone for vasogenic edema, currently on dexamethasone 4 mg every 6 hours. * Agree with checking B12, folate. * Recommended tobacco cessation. * Dr. Nile Burris Will resume neurology service from Monday. Thank you for the consult. Time with Patient: Greater than 30
[2023-05-13 16:30] LABS: Glucose,Whole Blood 129 mg/dL (70-110)
--- NOTE | 2023-05-13 21:10 | P.CONS ---
History of Present Illness - Reason for Consult Consult date: 05/13/23 brain mass Requesting physician: Amor Ortiz - Chief Complaint AMS - History of Present Illness Ms. Pelaez is an 83 yo female we have been asked to see because of abn findings on MRI brain. Pt was not able to tell me much other then she has a DAHL, speech is slurred so it is hard to understand her, she drifts off to sleep dueing conversation. Info, taken from chart. Pt has PMH HTN, hyperlipidemia, COPD, current smoker, brought to the hospital by her daughter because of weakness, progressive confusion and difficulty getting around. No reported fevers, N,V, D. Viral testing was neg, CXR, no acute process. CBC WNL. UA neg. CT was abnormal, MRI done reported 5.1x5.3x5.2 mass in the rt temporal lobe, 9mm midline shift and vasogenic edema. Pt is on dex 4mg Q 6 IV. She is symptomatic on exam. Review of Systems ROS unobtainable: due to mental status Past Medical History Past Medical History: COPD, Hypertension Additional Past Medical History / Comment(s): bone disease of spine History of Any Multi-Drug Resistant Organisms: None Reported Past Surgical History: Appendectomy, Tubal Ligation Past Anesthesia/Blood Transfusion Reactions: No Reported Reaction Past Psychological History: No Psychological Hx Reported Smoking Status: Current every day smoker Past Alcohol Use History: None Reported Past Drug Use History: None Reported - Past Family History Mother Family Medical History: Cancer, CVA/TIA Additional Family Medical History / Comment(s): Stomach Ca Father Additional Family Medical History / Comment(s): 6yrs after spinal surgery, not sure if it was from [place] Medications and Allergies Home Medications Medication Instructions Recorded Confirmed Type amLODIPine BESYLATE/BENAZEPRIL 1 cap PO DAILY 09/19/19 05/10/23 History [Lotrel 10-40 MG] Atorvastatin [Lipitor] 20 mg PO DAILY 05/10/23 05/10/23 History Metoprolol Tartrate [Lopressor] 50 mg PO BID 05/10/23 05/10/23 History Allergies Allergy/AdvReac Type Severity Reaction Status Date / Time No Known Allergies Allergy Verified 05/10/23 18:59 Physical Exam Vitals: Vital Signs Temp Pulse Resp BP Pulse Ox 05/13/23 07:43 98.2 F 104 H 20 154/84 92 L 05/13/23 02:00 97.5 F L 95 16 132/79 94 L 05/12/23 20:00 98.2 F 83 16 126/69 96 05/12/23 13:52 99.1 F 77 17 106/57 92 L Intake and Output 05/12/23 05/13/23 05/13/23 22:59 06:59 14:59 Output Total 400 Balance -400 Output: Urine 400 Other: Voiding Method External Catheter External Catheter # Voids 2 # Bowel Movements 0 - Constitutional General appearance: cooperative, mild distress, thin - EENT pt tongue protrudes symmetrically when asked to do so Eyes: abnormal pupil, anicteric sclerae ENT: hearing grossly normal - Neck Neck: no lymphadenopathy - Respiratory thin chest Respiratory: bilateral: diminished - Cardiovascular Rhythm: regular Heart sounds: normal: S1, S2 Abnormal Heart Sounds: no systolic murmur, no diastolic murmur, no rub, no S3 Gallop, no S4 Gallop, no click, no other leg Peripheral Edema: bilateral: None - Gastrointestinal General gastrointestinal: normal bowel sounds, soft - Neurologic pt unable to move lt arm on command, she reported feeling touch of the RLE appropriately but, when LLE touched pt did not report feeling the sensation Neurologic: focal deficits - Musculoskeletal Musculoskeletal: generalized weakness - Psychiatric Speech difficult to understand, she does answer some questions appropriately Results CBC & Chem 7: 05/13/23 06:33 05/13/23 06:33 Labs: Abnormal Lab Results - Last 24 Hours (Table) 05/13/23 05/13/23 Range/Units 06:33 06:33 Hgb 15.1 H (12.0-15.0) d/dL RDW 14.8 H (11.5-14.5) % Neutrophils # 8.12 H (1.80-7.70) X 10*3/uL Lymphocytes # 0.53 L (0.90-5.00) X 10*3/uL Eosinophils # 0 L (0.04-0.35) X 10*3/uL Creatinine 0.5 L (0.6-1.5) mg/dL BUN/Creatinine Ratio 20.60 H (12.00-20.00) Ratio Glucose 121 H (70-110) mg/dL Microbiology - Last 24 Hours (Table) 05/10/23 19:32 Blood Culture - Preliminary Blood 05/10/23 19:15 Blood Culture - Preliminary Blood Chest x-ray: report reviewed CT Scan - head: report reviewed MRI - head: report reviewed Assessment and Plan (1) Brain mass Current Visit: Yes Status: Acute Priority: High Code(s): G93.89 - OTHER SPECIFIED DISORDERS OF BRAIN SNOMED Code(s): 017553334 (2) Confusion Current Visit: Yes Status: Acute Priority: High Code(s): R41.0 - DISORIENTATION, UNSPECIFIED SNOMED Code(s): 096608146 (3) Generalized weakness Current Visit: Yes Status: Acute Priority: High Code(s): R53.1 - WEAKNESS SNOMED Code(s): 49907688 Plan: Brain mass -MRI reports 5.1x5.3x5.2 mass in the rt temporal lobe, 9mm midline shift and vasogenic edema. -Suspect a primary brain lesion vs metastatic due to solitary lesion and size but, metastatic disease cannot completely be ruled out -If this is a metastatic lesion, pt is very symptomatic and will require treatment of this mass before anything else could be done. -Radiation Oncology could be consulted for an opinion but, don't think that ra diation will be able to provide rapid enough symptom relief -Oncology recommendation is for transfer for Neurosurgical evaluation if pt/family wish to pursue aggressive care. Recs communicated to Attending -Pending Neurology assessment and recommendations -Pt is on dex 4mg Q 6 IV for symptoms
--- NOTE | 2023-05-13 23:38 | PN ---
PROGRESS NOTE DATE OF SERVICE: 05/13/2023 SUBJECTIVE: This is an 83-year-old woman, who was admitted with weakness, had significant mass lesion in the middle cranial fossa, right temporal area, with extensive vasogenic edema as well as midline shift. The patient is being closely monitored at this time. The patient continues to be confused. PAST MEDICAL HISTORY: Reviewed. REVIEW OF SYSTEMS: Could not be taken. CURRENT MEDICATIONS: Reviewed and include dexamethasone. PHYSICAL EXAMINATION: VITAL SIGNS: Pulse is 95, blood pressure 130/70, respirations 16. HEENT: Conjunctivae normal. NECK: No JVD. CARDIOVASCULAR: S1, S2. RESPIRATIONS: Breath sounds diminished at the bases. ABDOMEN: Soft. NERVOUS SYSTEM: Diffusely weak. LABORATORY DATA: Reviewed. ASSESSMENT: 1. Right temporal lobe mass lesion, possibly primary possibly secondary malignancy. 2. Change in mental status, metabolic toxic encephalopathy. 3. Moderate protein-calorie malnutrition. 4. Chronic obstructive pulmonary disease. 5. Multiple medical issues. 6. No code, no CPR, no vent. RECOMMENDATIONS AND DISCUSSION: Recommend to continue current medications, continue symptomatic treatment. I recommend CT scan of the chest, abdomen, pelvis to complete the workup. Otherwise, Neurology, Hematology, Oncology evaluation. Repeat labs. Resume the home medications. Monitor blood pressure closely. Prognosis guarded. Further recommendations to follow. Avoid anticoagulation. See orders for further details. MMODL / IJN: [id number] /
--- NOTE | 2023-05-14 00:31 | CT ---
EXAMINATION TYPE: CT ChestAbdPelvis wo con CT DLP: 377 mGycm, Automated exposure control for dose reduction was used. DATE OF EXAM: 05/13/2023 10:04 PM COMPARISON: CT 09/19/2019. CLINICAL INDICATION:Female, 83 years old with history of mets brain??; Technique: Multiple axial images of the chest, abdomen, and pelvis were obtained. Two-dimensional cor onal and sagittal reconstructions were obtained. Contrast used: mL of , none Oral contrast used: None Findings: Limited exam for cancer without IV contrast. CHEST: LUNGS/ PLEURA: Centrilobular emphysema changes throughout the lungs. No evidence for focal consolidat ion, pneumothorax or pleural effusion. AIRWAY: Patent and unremarkable. HEART: Size within normal limits. MEDIASTINUM: No gross evidence of adenopathy. VASCULATURE: No aortic aneurysm. MUSCULOSKELETAL: No acute osseous abnormalities. SOFT TISSUES/LYMPH NODES: Unremarkable. LOWER NECK: No significant findings. ABDOMEN: ABDOMEN LIVER: Unremarkable GALLBLADDER AND BILE DUCTS: Duct dilation measuring up to 9 mm which is within normal limits for kem ent's age. PANCREAS: Unremarkable. SPLEEN: Unremarkable. ADRENAL GLANDS: There may be thickening of the left adrenal gland which is unchanged from 2020. KIDNEYS AND URETERS: No evidence of hydronephrosis or renal calculus. The ureters are unremarkable. PELVIS BLADDER: Unremarkable REPRODUCTIVE: Unremarkable. ABDOMEN & PELVIS STOMACH AND BOWEL: No evidence of bowel obstruction. PERITONEUM: No evidence of pneumoperitoneum or free fluid. VASCULATURE: Severe atherosclerotic calcifications are present throughout the abdominal aorta and its branches. MUSCULOSKELETAL: No acute osseous abnormalities. Moderate disc degeneration changes are present throu ghout the thoracolumbar spine. Degeneration changes of the hips with osteophyte formation. LYMPH NODES: No gross evidence for lymphadenopathy. SOFT TISSUE/ABDOMINAL WALL: Unremarkable IMPRESSION: Limited exam for cancer without IV contrast. No Obvious mass identified. r
[2023-05-14] MEDS: DEXAMETHASONE SOD PHOSPHATE 4 MG/ML 1 ML VIAL IVP SCH ×4 (05:42→23:14)
[2023-05-14] MEDS: ATORVASTATIN 80 MG TAB PO SCH (08:26)
[2023-05-14] MEDS: lisinopriL 20 MG TAB PO SCH (08:26)
[2023-05-14] MEDS: METOPROLOL TARTRATE 50 MG TAB PO SCH (08:26)
[2023-05-14] MEDS: amLODIPine 10 MG TAB PO SCH (08:26)
[2023-05-14] MEDS ORDERED: amLODIPine 10 MG TAB PO SCH (09:00)
[2023-05-14 10:07] LABS: Basophils # (A) 0.01 X 10*3/uL (0.00-0.10); Basophils % (A) 0.2 %; Eosinophils # (A) 0 X 10*3/uL (0.04-0.35); Eosinophils % (A) 0 %; HCT 46.1 % (37.2-46.3); HGB 15.4 d/dL (12.0-15.0); Lymphocytes # (A) 0.33 X 10*3/uL (0.90-5.00); Lymphocytes % (A) 5.1 %; MCH 30.5 pg (27.0-32.0); MCHC 33.4 d/dL (32.0-37.0); MCV 91.3 FL (80.0-97.0); Monocytes % (A) 3.1 %; NRBC Per 100 WBC 0 X 10*3/uL (0.00-0.01); Neutrophils # (A) 5.88 X 10*3/uL (1.80-7.70); Neutrophils % (A) 91.1 %; Platelet Count 245 X 10*3/uL (140-440); RBC 5.05 X 10*6/uL (4.10-5.20); RDW 15.1 % (11.5-14.5); WBC 6.45 X 10*3/uL (4.50-10.00)
[2023-05-14 10:43] LABS: Blood Urea Nitrogen 18.3 mg/dL (9.0-27.0); Calcium 9.2 mg/dL (8.7-10.3); Carbon Dioxide 24.9 mmol/L (21.6-31.8); Chloride 105 mmol/L (96-109); Glucose 141 mg/dL (70-110); Potassium 4.1 mmol/L (3.5-5.5); Sodium 140 mmol/L (135-145)
[2023-05-14] MEDS: FOLIC ACID 1 MG TAB PO SCH (12:13)
[2023-05-14] MEDS: THIAMINE 100 MG TAB PO SCH (12:13)
[2023-05-14] MEDS: MULTIVITAMINS, THERA 1 EACH TAB PO SCH (12:13)
[2023-05-14] MEDS: NICOTINE 14MG/24HR PATCH TRANSDERM SCH (14:32)
--- NOTE | 2023-05-14 22:29 | PN ---
PROGRESS NOTE DATE OF SERVICE: 05/14/2023 SUBJECTIVE: This is an 83-year-old woman, who was admitted with generalized weakness, was found to have significant right temporal lobe mass lesion with vasogenic edema and as well as midline deviation. Had a detailed discussion with Hematology, Oncology, who thought it is probably a primary tumor secondary in the form of CT scan did not produce any positive results so far. However Dr. Arias has discussed at length with the family. At this time, the family appears to be not interested in invasive investigations and further treatment, so we will continue with current conservative line of management. Dexamethasone has been started. The patient is still confused appears to be slightly improved compared to yesterday. PAST MEDICAL HISTORY: Reviewed. REVIEW OF SYSTEMS: Could not be taken as the patient is confused. CURRENT MEDICATIONS: Dexamethasone, dose and rest of medications reviewed. PHYSICAL EXAMINATION: VITAL SIGNS: Pulse 101, blood pressure 129/80, respirations 10. HEENT: Conjunctivae normal. NECK: No JVD. CARDIOVASCULAR: S1, S2. RESPIRATIONS: Breath sounds diminished at the bases. ABDOMEN: Soft. NERVOUS SYSTEM: Diffusely weak. LABORATORY DATA: Reviewed. ASSESSMENT: 1. Large right temporal lobe mass lesion, possibly a primary malignancy versus secondary malignancy with brain tumor. 2. Change in mental status with acute metabolic and toxic encephalopathy. 3. Moderate protein-calorie malnutrition. 4. Chronic obstructive pulmonary disease. 5. Multiple medical issues. 6. No code, no CPR, no vent. RECOMMENDATIONS: Recommend to continue current medications, continue symptomatic treatment. Otherwise, I would recommend to continue the current medications and continue with no code measures. Dexamethasone. Suggest possible hospice. We will continue to monitor. MMODL / IJN: [id number] / MAGO
[2023-05-15] MEDS: DEXAMETHASONE SOD PHOSPHATE 4 MG/ML 1 ML VIAL IVP SCH ×3 (05:08→17:22)
[2023-05-15] MEDS: ATORVASTATIN 80 MG TAB PO SCH (09:03)
[2023-05-15] MEDS: NICOTINE 14MG/24HR PATCH TRANSDERM SCH (09:04)
[2023-05-15] MEDS: METOPROLOL TARTRATE 50 MG TAB PO SCH (09:04)
[2023-05-15] MEDS: lisinopriL 20 MG TAB PO SCH (09:04)
[2023-05-15] MEDS: amLODIPine 10 MG TAB PO SCH (09:04)
[2023-05-15] MEDS: THIAMINE 100 MG TAB PO SCH (12:09)
[2023-05-15] MEDS: MULTIVITAMINS, THERA 1 EACH TAB PO SCH (12:09)
[2023-05-15] MEDS: FOLIC ACID 1 MG TAB PO SCH (12:09)
--- NOTE | 2023-05-15 13:16 | P.PN ---
Subjective Progress Note Date: 05/15/23 Principal diagnosis: confusion, brain mass At today's visit patient is resting comfortably in bed. Patient is reporting left lower extremity pain and back pain which is chronic in nature. Patient denies dizziness and nausea vomiting. She is tolerating oral intake. Continues on IVP Decadron. Objective - Vital Signs Vital signs: Vital Signs Temp 98.0 F 05/15/23 07:19 Pulse 81 05/15/23 07:19 Resp 20 05/15/23 07:19 BP 141/80 05/15/23 07:19 Pulse Ox 95 05/15/23 07:19 FiO2 Intake & Output 05/14/23 05/15/23 05/15/23 18:59 06:59 18:59 Output Total 400 Balance -400 Output: Urine 400 Other: Voiding Method Diaper Diaper Diaper External Catheter External Catheter External Catheter # Voids 2 2 # Bowel Movements 1 1 - Constitutional General appearance: Present: average body habitus, no acute distress - EENT Eyes: Present: anicteric sclerae, EOMI ENT: Present: hard of hearing - Respiratory Details: breathing is even and unlabored - Cardiovascular Details: skin warm and dry - Integumentary Integumentary: Absent: cyanotic - Musculoskeletal Musculoskeletal: Present: generalized weakness - Psychiatric Psychiatric: Present: A&O x's 3 - Labs CBC & Chem 7: 05/14/23 06:36 05/14/23 06:36 - Imaging and Cardiology CT scan - abdomen: report reviewed CT scan - chest: report reviewed CT scan - pelvis: report reviewed MRI - head: report reviewed Assessment and Plan (1) Brain mass Current Visit: Yes Status: Acute Priority: High Code(s): G93.89 - OTHER SPECIFIED DISORDERS OF BRAIN SNOMED Code(s): 066259666 (2) Confusion Current Visit: Yes Status: Acute Priority: High Code(s): R41.0 - DISORIENTATION, UNSPECIFIED SNOMED Code(s): 356650683 (3) Generalized weakness Current Visit: Yes Status: Acute Priority: High Code(s): R53.1 - WEAKNESS SNOMED Code(s): 13737761 Plan: Brain mass -MRI reports 5.1x5.3x5.2 mass in the rt temporal lobe, 9mm midline shift and vasogenic edema. -Suspect a primary brain lesion vs metastatic due to solitary lesion and size but, metastatic disease cannot completely be ruled out -CT CAP w/o contrast negative for metastasis, making more likely this is a primary brain malignancy. -Radiation Oncology could be consulted for an opinion but, don't think that radiation will be able to provide rapid enough symptom relief. Oncology recommendation is for transfer for Neurosurgical evaluation if pt/family wish to pursue aggressive care. Spoke with patient today regarding findings and she states she wishes to know what is going on and for a diagnosis, but is unsure if she wishes to pursue treatment due to possible side effects. She states she wishes to speak with daughter regarding this as well before making any decisions. Spoke with primary RN who will reach out to family, so family meeting can be held tomorrow morning to discuss recommendations and if they would like to pursue further evaluation and treatment. Spoke with IM team regarding case, will further discuss possible transfer pending family meeting -Neurology following -Continues on dex 4mg Q 6 IV for symptoms, with reported improvement
--- NOTE | 2023-05-15 13:49 | P.PN ---
Subjective Progress Note Date: 05/15/23 I am seeing the patient for the first time during this admission. Please refer to Dr. Carlos's note for further details. It seems the patient has brain mass suggestive of malignancy. She was started on steroids. Oncology is on board and they recommended transfer for neurosurgical evaluation depending on family wishes. She is sitting in bed and is aware she has brain mass. Denies of headache and could not tell me if any weakness or numbness or visual disturbance. Objective - Vital Signs Vital signs: Vital Signs Temp 98.0 F 05/15/23 07:19 Pulse 81 05/15/23 07:19 Resp 20 05/15/23 07:19 BP 141/80 05/15/23 07:19 Pulse Ox 95 05/15/23 12:48 FiO2 Intake & Output 05/14/23 05/15/23 05/15/23 18:59 06:59 18:59 Output Total 400 Balance -400 Output: Urine 400 Other: Voiding Method Diaper Diaper Diaper External Catheter External Catheter External Catheter # Voids 2 2 # Bowel Movements 1 1 - Exam GENERAL: The patient is sitting in a recliner chair and is not in acute distress. NEUROLOGICAL: Limited because of overall condition. Higher mental function: The patient is awake, alert, oriented to self, correctly stated year is 2022 but stated the month is April. She stated she is over her sister's house. She follows very few simple commands such as thumbs up and sticking tongue out. Visual lawrence but is unable to be assessed because of her cooperation. She kept on saying 6 everything upon showing her the fingers. No facial weakness. No dysarthria. Motor she was moving the right upper and lower better than the left side. I felt the lower was worse than the left upper. Physician was hard to assess because of her cooperation. - Labs CBC & Chem 7: 05/14/23 06:36 05/14/23 06:36 Assessment and Plan Assessment: * Large heterogeneous intracerebral mass which is predominantly peripherally enhancing with evidence of hemorrhage. 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 Patient has presented with progressive weakness, slurred speech and mental confusion. Examination reveals left hemiparesis, left hemisensory loss and left visual field deficit. * Tobacco use, 50 pack years * Long-standing history of migraine headaches * Weight loss Plan: * MRI of the brain was done, which revealed a heterogeneous mass which is predominantly peripherally enhancing with evidence of hemorrhage. Findings suspicious for high-grade primary brain malignancy with the infection felt to be less likely. 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 I personally reviewed MRI of the brain, agree with the findings. Appears primary malignancy. * Per Dr. Carlos, patient's daughter does not want patient to go through aggressive workup and treatment and prefers her to be comfortable. * Oncology also has been consulted, and she will discuss further with oncology regarding options. * EEG: Preliminary is abnromal. There is focal slowing is suggestive of focal cerebral dysfunction. Otherwise, there is no epileptiform discharge or seizure on the EEG. * Agree with starting dexamethasone for vasogenic edema, currently on dexamethasone 4 mg every 6 hours. * If patient develops any clinical seizures, then recommend Keppra 500mg bid. * B12: 480, folate:pending * Recommended tobacco cessation. The plan is discussed with primary team. Time with Patient: Less than 30
--- NOTE | 2023-05-15 15:46 | P.PN ---
Subjective Progress Note Date: 05/15/23 Patient is a 83-year-old female with a past medical history of hypertension, hyperlipidemia and COPD was brought to the hospital by her daughter due to generalized weakness. Patient has been more confused and difficulty getting out of bed for the past 4 days and occasionally confused. Otherwise no symptoms of focal weakness or slurred speech or weakness or seizures. No fever no chills. No nausea vomiting or diarrhea. Patient has been afebrile on admission. Chest x-ray showed chronic changes without acute pulmonary process. EKG showed sinus rhythm with occasional supraventricular premature complexes. Laboratory data showed WBC 8.4 hemoglobin 14.4 and platelets 211 Sodium 137, potassium 3.6, chloride 102, bicarb is 27 BUN 16 and creatinine 0.5 and blood sugar 94 lactic acid 0.8 liver enzymes are not elevated. Urinalysis is negative for infection. Coronavirus PCR not detected. 05/12/2023 Patient is seen and evaluated in follow-up today continues to be confused with generalized weakness. Patient is afebrile with no reports of chest pain or shortness of breath. Patient awaiting PT/OT evaluation and discussing possible ECF. Patient is poor historian and reporting that she does have a walker at the home although reports her children do not let her use it. Awaiting to discuss with daughter who she lives with to obtain further information regarding her mentation and baseline status. Patient is tolerating diet with no reported nausea or vomiting noted. Patient had significant weakness that had been progressing over the last few days along with altered mentation and confusion will obtain CT brain and neurology consultation. 05/15/2023 Patient is seen and evaluated in follow-up this morning currently sitting up in the chair continues with significant weakness more predominant on the left side on exam and continues to have some confusion which has been ongoing. Multiple consultations including oncology along with neurology following and patient has been started on IV dexamethasone. MRI was positive for mass and the family decided to pursue further evaluation and possible treatment then would need transfer to neurosurgery. Family and oncology to meet with the patient tomorrow morning at 9 AM to discuss overall prognosis and possible treatment plans moving forward. Patient continues with weakness and would continue on physical therapy evaluation daily and frequent reorientation. Patient is afebrile with no reported chest pain or shortness of breath. Patient tolerating diet and would continue with aspiration precautions. Review of systems: Constitutional: No reports of fatigue, fever, or chills Cardiovascular: No reports of chest pain or palpitations Respiratory: No reports of shortness of breath or cough GI: No reports of nausea, vomiting, or diarrhea : No reports of dysuria or retention Neurovascular: Reports inability to ambulate reports of weakness All medications have been reviewed PHYSICAL EXAMINATION: Patient is sitting up in the chair, awake alert and oriented 1-2, thin built, elderly appearing.. HEENT: Normocephalic. Neck is supple. Pupils reactive. Nostrils clear. Oral cavity is moist. Cystic lesion on the mid scalp region with Some crusting on the side. No discharge or worsening pain. Neck reveals no JVD, carotid bruits, or thyromegaly. CHEST EXAMINATION: Trachea is central. Symmetrical expansion. Lung lawrence clear to auscultation and percussion. CARDIAC: Normal S1, S2 with no gallops. No murmurs ABDOMEN: Soft. Bowel sounds present. Nontender. No organomegaly. No abdominal bruits. Extremities: reveal no edema. No clubbing or cyanosis Neurologically awake, alert, oriented x1-2-3 with continued confusion, patient is able to move all extremities. Diffusely weak Mild cognitive impairment. Skin: No rash or skin lesions. Chronic appearing cystic lesion on the mid scalp with crusting noted, no drainage noted Psychiatric: Cooperative. Non-suicidal, Musculoskeletal: No joint swelling or deformity. Normal range of motion. Assessment: Generalized weakness with inability unable to ambulate possibly secondary to extensive vasogenic edema with heterogenous appearing right middle cranial fossa/right temporal lobe with possible intraparenchymal mass or even hemorrhagic mass not entirely excluded as noted on CT brain, MRI confirms large right temporal lobe mass lesion likely primary malignancy versus secondary malignancy with a brain tumor Moderate protein calorie malnutrition with a BMI of 18.3 with poor oral intake Medical debility Mild electrolyte abnormalities including low potassium secondary to poor oral intake acute metabolic and toxic encephalopathy, improving Hypertension Hyperlipidemia COPD not in exacerbartion Mild cognitive impairment with concerns of possible dementia DVT prophylaxis, SCDs only GI prophylaxis No code Plan: Patient will be continued on current medications with multiple consultations following. Plan is for meeting with oncology and family in the morning to discuss overall findings along with any possible treatment options and would need neurosurgery evaluation. Family to also discuss possible hospice Continue aspiration precautions of head of the bed elevated 45 at all times, dysphagia chopped diet and supervision with meals Patient per daughter has been having increased confusion with altered mentation and inability to ambulate with weakness that had been progressing over the last few days. Lengthy discussion was had with daughter of which patient resides with and has been noticing progressive weakness over the last few months with concerns of worsening mentation and possible dementia. CT brain obtained which showed extensive vasogenic edema with heterogenous appearing right middle cranial fossa/right temporal lobe with a low density area with higher density surrounding suggestive of possible intraparenchymal mass or even a hemorrhagic mass is not clearly excluded and also confirmed on MRI Neurology following as well as oncology SCDs for DVT prophylaxis Discussed CODE STATUS with the patient and daughter and daughter reports patient has always told her she wants no code PT OT evaluation recommending rehab and [facility] has accepted. Will await discussion with oncology and discuss further with daughter about discharge planning and treatment plan moving forward Due to multiple complex medical issues, prognosis is poor and guarded The impression and plan of care has been dictated by Marlene Lawrence, Nurse Pract itioner as directed. Dr. Angel MD I have performed a history and examination and MDM of this patient, discussed the same with the dictator, and agree with the dictator's assessment and plan as written ,documented as a scribe. Based on total visit time, I have performed more than 50% of the visit. . Objective - Vital Signs Vital signs: Vital Signs Temp 98.0 F 05/15/23 07:19 Pulse 81 05/15/23 07:19 Resp 20 05/15/23 07:19 BP 141/80 05/15/23 07:19 Pulse Ox 95 05/15/23 07:19 FiO2 Intake & Output 05/14/23 05/15/23 05/15/23 18:59 06:59 18:59 Output Total 400 Balance -400 Output: Urine 400 Other: Voiding Method Diaper Diaper Diaper External Catheter External Catheter External Catheter # Voids 2 2 # Bowel Movements 1 1 - Labs CBC & Chem 7: 05/14/23 06:36 05/14/23 06:36 Labs: Abnormal Lab Results - Last 24 Hours (Table) 05/14/23 05/14/23 Range/Units 06:36 06:36 Hgb 15.4 H (12.0-15.0) d/dL RDW 15.1 H (11.5-14.5) % Lymphocytes # 0.33 L (0.90-5.00) X 10*3/uL Eosinophils # 0 L (0.04-0.35) X 10*3/uL Creatinine 0.5 L (0.6-1.5) mg/dL BUN/Creatinine Ratio 36.60 H (12.00-20.00) Ratio Glucose 141 H (70-110) mg/dL
--- NOTE | 2023-05-15 16:08 | EEG ---
ELECTROENCEPHALOGRAM REPORT CLINICAL HISTORY: This is an 83-year-old woman with altered mental status. The EEG is obtained to evaluate for seizure epileptiform activity. RELEVANT MEDICATION: The patient is not on any antiepileptic drugs. EEG TYPE: This is a routine 21-channel EEG with video using the 10/20 electrode placement system. DESCRIPTION: Wakefulness and drowsiness are obtained. During awake state, the posterior- dominant rhythm consists of 8 hertz activity that is well modulated, well sustained. There is no physiological stage 2 sleep architecture. There is delta slowing over the right temporal > central region Interictal and ictal: None. ACTIVATION PROCEDURE: Photic stimulation did not evoke a posterior driving response. There is no abnormality during the photic stimulation. Hyperventilation is not performed. CLINICAL INTERPRETATION: This is an abnormal routine EEG. The focal slowing as stated above is likely due to focal cerebral dysfunction. There is no epileptiform discharges or seizure on the EEG. Clinical correlation is recommended. MEGHA / BELLAN: [id number] / MAGO
[2023-05-16] MEDS: DEXAMETHASONE SOD PHOSPHATE 4 MG/ML 1 ML VIAL IVP SCH ×3 (00:28→12:26)
[2023-05-16] MEDS: ACETAMINOPHEN TAB 325 MG TAB PO PRN (08:36)
[2023-05-16] MEDS: MULTIVITAMINS, THERA 1 EACH TAB PO SCH (08:37)
[2023-05-16] MEDS: METOPROLOL TARTRATE 50 MG TAB PO SCH (08:37)
[2023-05-16] MEDS: amLODIPine 10 MG TAB PO SCH (08:37)
[2023-05-16] MEDS: THIAMINE 100 MG TAB PO SCH (08:37)
[2023-05-16] MEDS: NICOTINE 14MG/24HR PATCH TRANSDERM SCH (08:37)
[2023-05-16] MEDS: FOLIC ACID 1 MG TAB PO SCH (08:37)
[2023-05-16] MEDS: ATORVASTATIN 80 MG TAB PO SCH (08:37)
[2023-05-16] MEDS: lisinopriL 20 MG TAB PO SCH (08:37)
[2023-05-16 09:31] VITALS: BP 138/85; PULSE 84; RESP 16; TEMP 97.7
--- NOTE | 2023-05-16 14:34 | P.PN ---
Subjective Progress Note Date: 05/16/23 Principal diagnosis: confusion, brain mass Family meeting held today with Dr. Aníbal Chapman to discuss results and care options Objective - Vital Signs Vital signs: Vital Signs Temp 97.7 F 05/16/23 07:05 Pulse 84 05/16/23 07:05 Resp 16 05/16/23 07:05 BP 138/85 05/16/23 07:05 Pulse Ox 95 05/16/23 07:05 FiO2 Intake & Output 05/15/23 05/16/23 05/16/23 18:59 06:59 18:59 Output Total 700 500 Balance -700 -500 Weight 45.359 kg Output: Urine 700 500 Other: Voiding Method Diaper Diaper External Catheter External Catheter # Voids 0 - Constitutional General appearance: Present: average body habitus, no acute distress - EENT ENT: Present: hard of hearing - Respiratory Details: breathing even and unlabored - Cardiovascular Details: skin warm and dry - Psychiatric Psychiatric: Present: A&O x's 3, intact judgment & insight - Labs CBC & Chem 7: 05/14/23 06:36 05/14/23 06:36 Labs: Microbiology - Last 24 Hours (Table) 05/10/23 19:32 Blood Culture - Final Blood 05/10/23 19:15 Blood Culture - Final Blood - Imaging and Cardiology CT scan - abdomen: report reviewed CT scan - chest: report reviewed CT Scan - head: report reviewed CT scan - pelvis: report reviewed MRI - head: report reviewed Assessment and Plan (1) Brain mass Current Visit: Yes Status: Acute Priority: High Code(s): G93.89 - OTHER SPECIFIED DISORDERS OF BRAIN SNOMED Code(s): 868955790 (2) Confusion Current Visit: Yes Status: Acute Priority: High Code(s): R41.0 - DISORIENTATION, UNSPECIFIED SNOMED Code(s): 621808167 (3) Generalized weakness Current Visit: Yes Status: Acute Priority: High Code(s): R53.1 - WEAKNESS SNOMED Code(s): 21170919 Plan: Brain mass: -Presented with confusion and weakness. MRI brain revealed 5.1x5.3x5.2 mass in the rt temporal lobe, 9mm midline shift and vasogenic edema. -Suspicious for a primary brain lesion -CT CAP w/o contrast negative for metastasis, making more likely this is a primary brain malignancy. -Family meeting held today with Dr. Aníbal Chapman. Scans were discussed in detail with patient and family. 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 Spoke with patient in regards to this type of cancer and that it is typically an aggressive malignancy. And a biopsy would need to be obtained for a confirmative diagnosis, which she would need to be evaluated by neurosurgery and she would likely need resection of mass and treatment would typically consist of RT and chemotherapy. It was discussed with patient that due to her advanced age, comorbidities and poor performance status that she would likely not be a good surgical candidate or be able to tolerate systemic treatment. Patient verbalized that she does not want any aggressive treatment and states that she would only want her symptoms treated and managed. Palliative care/hospice was discussed and patient agreed to pursuing the same. Hospice consult has been placed -Will continue decadron for symptom management as this has helped with improving symptoms -Informed patient and family that we will still be available if they have any further questions or concerns. Please do not hesitate to reach out to our service if we can offer any additional assistance attests: I have seen and examined patient, performed H&P, developed impression and plan of care. Discussed with dictator. Agree with documentation, dictated as a scribe Time with Patient: Greater than 30
--- NOTE | 2023-05-22 05:12 | P.DS ---
Providers Date of admission: 05/10/23 21:20 Expected date of discharge: 05/16/23 Attending physician: Amor Ortiz Consults: 05/12/23 17:14 Consult Physician Stat Consulting Provider: Ori Carlos Consult Reason/Comments: abnormal findings on ct, altered mentation Do you want consulting provider notified?: Yes 05/13/23 11:35 Consult Physician Urgent Consulting Provider: Enzo Pastor Consult Reason/Comments: Brain mass Do you want consulting provider notified?: Yes Primary care physician: Colton Yoo Hospital Course: Final diagnosis Generalized weakness with inability unable to ambulate possibly secondary to extensive vasogenic edema with heterogenous appearing right middle cranial fossa/right temporal lobe with possible intraparenchymal mass or even hemorrhagic mass not entirely excluded as noted on CT brain, MRI confirms large right temporal lobe mass lesion likely primary malignancy versus secondary malignancy with a brain tumor Moderate protein calorie malnutrition with a BMI of 18.3 with poor oral intake Medical debility Mild electrolyte abnormalities including low potassium secondary to poor oral intake acute metabolic and toxic encephalopathy, improving Hypertension Hyperlipidemia COPD not in exacerbartion Mild cognitive impairment with concerns of possible dementia DVT prophylaxis, SCDs only GI prophylaxis No code Discharge disposition Patient is being discharged in a stable condition with guarded prognosis to [facility]. Patient will follow-up with Dr. Yoo in the outpatient setting upon discharge. Total time taken is greater than 35 minutes. Hospital course This is a 83-year-old female who was recently admitted with altered mentation with concerns of increasing weakness and more frequent falls. Patient showed s ome mild improvement in mentation although most likely dementia as well and has been deteriorating per family. Patient was found to have extensive vasogenic edema with concerns of right temporal lobe mass likely malignancy. Family requesting no further intervention and discuss CODE STATUS and would like comfort measures. Patient going to [facility]. Please refer to other consultation notes for further HPI. Currently no reports of chest pain, shortness of breath, or palpitations. Patient is afebrile. No reports of nausea or vomiting and patient is tolerating diet. Patient will be going to [facility] today. Poor prognosis. Physical exam: Gen: This is a 83-year-old female who is awake, alert and oriented 1-2, thin built, elderly appearing, cachectic HEENT: Head is atraumatic, normocephalic. Pupils equal, round. Sclerae is anicteric. NECK: Supple. No JVD. No lymphadenopathy. No thyromegaly. LUNGS: Clear to auscultation. No wheezes or rhonchi. No intercostal retractions. HEART: Regular rate and rhythm. No murmur. ABDOMEN: Soft. Bowel sounds are present. No masses. No tenderness. EXTREMITIES: No pedal edema. No calf tenderness. NEUROLOGICAL: Patient is awake, alert and oriented x1-2. Diffusely weak Please refer to medication reconciliation sheet for a list of medications. The impression and plan of care has been dictated by Marlene Lawrence, Nurse Practitioner as directed. Dr. Magali MD I have performed a history and examination and MDM of this patient, discussed the same with the dictator, and agree with the dictator's assessment and plan as written ,documented as a scribe. Based on total visit time, I have performed more than 50% of the visit. Patient Condition at Discharge: Poor Plan - Discharge Summary Discharge Rx Participant: Yes New Discharge Prescriptions: Continue amLODIPine BESYLATE/BENAZEPRIL [Lotrel 10-40 MG] 1 cap PO DAILY Metoprolol Tartrate [Lopressor] 50 mg PO BID Atorvastatin [Lipitor] 20 mg PO DAILY Discharge Medication List amLODIPine BESYLATE/BENAZEPRIL [Lotrel 10-40 MG] 1 cap PO DAILY 09/19/19 [History] Atorvastatin [Lipitor] 20 mg PO DAILY 05/10/23 [History] Metoprolol Tartrate [Lopressor] 50 mg PO BID 05/10/23 [History] Follow up Appointment(s)/Referral(s): Colton Yoo MD [Primary Care Provider] - 1-2 days Discharge Disposition: HOME WITH HOSPICE
== END 2023-05-16 15:16 | disposition hospice, home (50) | DRG 54 ==
LOC: EC 18:06 → 4SSUR 21:20
PROVIDERS: ADMIT Hospitalist; ATTEND Hospitalist
DX: C71.2 Malignant neoplasm of temporal lobe (principal); G92.8 Other toxic encephalopathy; G93.5 Compression of brain; G93.6 Cerebral edema; E44.0 Moderate protein-calorie malnutrition; Z68.1 Body mass index [BMI] 19.9 or less, adult; G81.94 Hemiplegia, unspecified affecting left nondominant side; C80.1 Malignant (primary) neoplasm, unspecified; H91.90 Unspecified hearing loss, unspecified ear; M89.9 Disorder of bone, unspecified; G31.84 Mild cognitive impairment of uncertain or unknown etiology; I10 Essential (primary) hypertension; R53.81 Other malaise; Z20.822 Contact with and (suspected) exposure to COVID-19; Z11.52 Encounter for screening for COVID-19; E78.5 Hyperlipidemia, unspecified; F17.210 Nicotine dependence, cigarettes, uncomplicated; G43.909 Migraine, unspecified, not intractable, without status migrainosus; G89.29 Other chronic pain; M54.9 Dorsalgia, unspecified; H54.62 Unqualified visual loss, left eye, normal vision right eye; R47.81 Slurred speech; I49.1 Atrial premature depolarization; Z66 Do not resuscitate; Z51.5 Encounter for palliative care; Z79.899 Other long term (current) drug therapy
CPT/HCPCS: 36415; 70450; 70553; 71046; 71250; 74176; 80048; 80053; 81003; 82607; 82747; 83605; 83735; 84443; 85025; 87040; 87635; 93005; 94760; 95816; 96360; 99285